=== PATIENT | male | born 1965 | race Caucasian/White ===

== ENCOUNTER 2019-10-14 17:08 | Inpatient (IN) | payer BC, OTHER, SELFPAY ==
[~2019-10-14] VITALS: Ht 167.6 cm; Wt 47.0 kg
[2019-10-14] MEDS ORDERED: COMBIVENT RESPIMAT 100-20MCG INHALER 4GM INH STA (17:23)
[2019-10-14] MEDS ORDERED: methylPREDNISolone INJ 125 MG/2 ML VIAL (J2930) IV ONE (17:30)
[2019-10-14 17:48] LABS: EOS % 0.3 % (0.0-3.0); HEMATOCRIT 46.3 % (42.0-52.0); HEMOGLOBIN 14.2 g/dl (13.5-17.5); LYMPH # 0.6 10^3/uL (1.5-5.0); LYMPH % 7.7 % (24.0-44.0); MEAN CORPUSCULAR HEMOGLOBIN 29.1 pg (27.0-33.0); MEAN CORPUSCULAR HGB CONC 30.7 g/dl (32.0-36.5); MEAN CORPUSCULAR VOLUME 94.9 fl (80.0-96.0); MONO # 1.1 10^3/uL (0.0-0.8); MONO % 15.4 % (0.0-5.0); NEUTROPHILS # 5.6 10^3/uL (1.5-8.5); NEUTROPHILS % 76.1 % (36.0-66.0); PLATELET COUNT, AUTOMATED 230 10^3/uL (150-450); RED BLOOD COUNT 4.88 10^6/uL (4.30-6.10); WHITE BLOOD COUNT 7.4 10^3/uL (4.0-10.0)
[2019-10-14 17:59] LABS: INR 1.34; PROTHROMBIN TIME 16.3 SECONDS (11.8-14.0)
[2019-10-14] MEDS ORDERED: PANT40TA3 PO (18:10)
[2019-10-14] MEDS ORDERED: DULO1CAP5 (18:10)
--- NOTE | 2019-10-14 18:14 | REP ---
Clinical: Cough and dyspnea. Comparison: 08/04/2011. Findings: COPD. No focal consolidation, effusion, or pneumothorax. Mediastinum and cardiac silhouette are normal. Skeletal structures are intact. Impression: COPD. Electronically Signed by Eh Guillen MD 10/14/2019 06:05 P
[2019-10-14 18:22] LABS: ALBUMIN 3.5 GM/DL (3.2-5.2); BILIRUBIN,DIRECT 0.2 MG/DL (0.0-0.2); BILIRUBIN,TOTAL 0.5 MG/DL (0.2-1.0); MB/CK RELATIVE INDEX 1.6 (< OR =4); THYROID STIMULATING HORMONE 1.96 uIU/ML (0.358-3.740); THYROXINE (T4) 8.7 UG/DL (4.5-12.0); TOTAL PROTEIN 6.2 GM/DL (6.4-8.2); TROPONIN I 0.37 NG/ML (< 0.10)
[2019-10-14] MEDS ORDERED: NS IV ONE (18:30)
[2019-10-14] MEDS ORDERED: ISOVUE-370 76% 100ML VIAL As Ordered ONE (20:35)
[2019-10-14 20:49] LABS: CK-MB VALUE MASS 3.2 NG/ML (<3.6); MB/CK RELATIVE INDEX 2.35 (< OR =4); TROPONIN I 0.38 NG/ML (< 0.10)
--- NOTE | 2019-10-14 21:20 | REPVR ---
PROCEDURE INFORMATION: Exam: CT Angiography Chest With Contrast Exam date and time: 10/14/2019 8:47 PM Age: 53 years old Clinical indication: Chest pain; Additional info: Hypoxia; R/O pe TECHNIQUE: Imaging protocol: Computed tomographic angiography of the chest with intravenous contrast. 3D rendering: MIP and/or 3D reconstructed images were created by the technologist. Radiation optimization: All CT scans at this facility use at least one of these dose optimization techniques: automated exposure control; mA and/or kV adjustment per patient size (includes targeted exams where dose is matched to clinical indication); or iterative reconstruction. Contrast material: ISOVUE 370; Contrast volume: 75 ml; Contrast route: INTRAVENOUS (IV); COMPARISON: CR PORTABLE CHEST X-RAY 10/14/2019 5:47 PM FINDINGS: Pulmonary arteries: No pulmonary embolism. The pulmonary artery trunk is dilated and measures 3.2 cm in diameter, which can be seen with pulmonary artery hypertension. Great vessels off aortic arch: The brachiocephalic artery, imaged proximal portions of the common carotid arteries, imaged proximal portions of the vertebral arteries, and subclavian arteries are intact. No stenosis or occlusion of these vessels is noted. Aorta: The thoracic aorta is intact and patent. There is no thoracic aortic aneurysm, pseudoaneurysm, penetrating atherosclerotic ulcer, intramural hematoma, or dissection. Tracheobronchial tree: There are secretions in the left mainstem bronchus and left lower lobe bronchus. Lungs: There are extensive centrilobular emphysematous changes, predominantly in the upper lobes. There is mild dependent atelectasis in the left lower lobe. No lung consolidation or mass is noted. Pleural space: Normal. No pneumothorax or pleural effusion. Heart: The right ventricle and right atrium are dilated. No pericardial effusion is noted. There are coronary artery calcifications. Mediastinal space: No mediastinal mass, fluid collection, or pneumomediastinum. Lymph nodes: No enlarged lymph nodes. Diaphragm: Intact. Spleen: Unremarkable. No splenomegaly is noted. Adrenals: Unremarkable. No adrenal mass is noted. Intraperitoneal space: There is a small amount of free fluid in the right upper quadrant of the abdomen. Bones/joints: There is no fracture or dislocation. No suspicious osteolytic or osteoblastic lesion. Soft tissues: Unremarkable. No soft tissue fluid collection. IMPRESSION: 1. No acute findings in the chest. No pulmonary embolism. 2. No thoracic aortic aneurysm, pseudoaneurysm, intramural hematoma, penetrating atherosclerotic ulcer, or dissection. 3. Extensive centrilobular emphysematous changes. 4. Dilation of the pulmonary artery trunk, right ventricle, and right atrium, which may indicate pulmonary artery hypertension. 5. Small amount of free fluid in the right upper quadrant of the abdomen. Electronically signed by: Elliott Key On 10/14/2019 21:20:25 PM
[2019-10-14] MEDS ORDERED: ALBUTEROL SULFATE 2.5 MG/0.5 ML INH NEB SOLN NEB ONE (22:45)
[2019-10-14] MEDS ORDERED: IPRATROPIUM 0.5MG/ALBUTEROL 2.5MG INH SOL UD 3ML (DUONEB) NEB ONE (22:45)
[2019-10-14 22:47] LABS: CK-MB VALUE MASS 2.9 NG/ML (<3.6); MB/CK RELATIVE INDEX 2.5 (< OR =4); TROPONIN I 0.38 NG/ML (< 0.10)
[2019-10-14 23:40] LABS: MAGNESIUM LEVEL 1.4 MG/DL (1.8-2.4)
[2019-10-14] MEDS ORDERED: ALBUTEROL SULFATE 2.5 MG/0.5 ML INH NEB SOLN NEB PRN (23:45)
[2019-10-14] MEDS ORDERED: ACETAMINOPHEN TAB 650MG DOSE (2X325MG) PO PRN (23:45)
[2019-10-14] MEDS ORDERED: MAG SULF 1GM/100ML (MAG RUN) 1 GM in IV 1 EA IV ONE (23:45)
[2019-10-14] MEDS ORDERED: MOM 30ML SUSPENSION UDC PO PRN (23:45)
[2019-10-14] MEDS ORDERED: MAALOX 30 ML SUSP *UDC PO PRN (23:45)
[2019-10-14] MEDS ORDERED: ASPIRIN 81 MG CHEW TABLET PO ONE (23:45)
[2019-10-14] MEDS ORDERED: METH4PACK PO (23:49)
[2019-10-14] MEDS ORDERED: PROAAER10 PO (23:49)
[2019-10-14] MEDS ORDERED: TREL1AER INH (23:49)
[2019-10-14] MEDS ORDERED: DULO60CA35 PO (23:49)
[2019-10-14] MEDS ORDERED: AMOX875T2 PO (23:49)
[2019-10-15] VITALS (11 sets, daily range): BP systolic 112–125; BP diastolic 68–80
--- NOTE | 2019-10-15 00:07 | HPEPDOC ---
[facility] Medical History & Physical Date of Admission Oct 14, 2019 Date of Service: Oct 15, 2019 Attending Physician: LILO DURHAM MD History and Physical TIME OF SERVICE: 1245PM CHIEF COMPLAINT: dyspnea HISTORY OF PRESENT ILLNESS: This is a 53 yr old male who presented with c/o of shortness of breath for several days. Yesterday he also felt dizzy and fell down therefore he decided to come to the hospital for evaluation. He denied having chest pain, PINZON, f/c, sick contacts, any leg swelling, or a change in his productive cough. He did admit to being around someone that was smoking. In the ER his ABG, which showed a pH of 7.30, PO2 of 68 and PCO2 of 98 & he was put on BIPAP; the second ABG showed a pH 7.24, PO2 of 84 and PCO2 of 106.9. Despite receiving solumedrol and nebs, subsequent ABGs showed minimal improvement. Chest imaging studies were negative for PE or PNA but his troponin was slightly elevated at 0.37. Per Rajeev Gonsalez was consulted and felt that this was likely demand ischemia. REVIEW OF SYSTEMS: 12 point review of systems negative except as listed in HPI PAST MEDICAL/ SURGICAL HISTORY: COPD He denies having a hx of CAD, ND, CVA, HTN or DM SOCIAL HISTORY: Former smoker Drinks a few alcoholic beverages a week FAMILY HISTORY: He denies having any family medical problems ALLERGIES: Please see below. HOME MEDICATIONS: Please see below. PHYSICAL EXAMINATION: Vital Signs Date Time Temp Pulse Resp B/P (MAP) Pulse Ox O2 Delivery O2 Flow Rate FiO2 10/14/19 17:26 129/91 (104) 10/14/19 17:38 96 99 10/14/19 17:50 Nasal Cannula 3.0 10/14/19 19:45 22 10/14/19 20:30 30 10/14/19 21:01 98.3 GENERAL APPEARANCE: cachectic / NAD HEENT: NCAT/ BIPAP mask in place CARDIOVASCULAR: RRR/NMRG / no lower extremity edema. LUNGS: there is decreased air entry bilaterally / breath sounds are diminished bilaterally ABDOMEN: scaphoid/ soft &NT MUSCULOSKELETAL: DIANE x 4 INTEGUMENT: doesnt have facial plethora NEUROLOGICAL: difficult to assess bc of BIPAP mask PSYCHIATRIC: A&O / able to understand and follow commands LABORATORY DATA: 10/14/19 17:34 Immature Granulocyte % (Auto) 0.5, Neutrophils (%) (Auto) 76.1H, Lymphocytes (%) (Auto) 7.7L, Monocytes (%) (Auto) 15.4H, Eosinophils (%) (Auto) 0.3, Basophils (%) (Auto) 0.0, Neutrophils # (Auto) 5.6, Lymphocytes # (Auto) 0.6L, Monocytes # (Auto) 1.1H, Eosinophils # (Auto) 0.0, Basophils # (Auto) 0.0, Nucleated Red Blood Cells % (auto) 0.0, Prothrombin Time 16.3H, Prothromb Time International Ratio 1.34, Lactic Acid Level 3.0*H, Total Bilirubin 0.5, Direct Bilirubin 0.2, Aspartate Amino Transf (AST/SGOT) 445H, Alanine Aminotransferase (ALT/SGPT) 1197H, Alkaline Phosphatase 94, Total Creatine Kinase 187, Creatine Kinase MB 3.0, Creatine Kinase MB Relative Index 1.60, Troponin I 0.37H, AT-Dgu-X-Type Natriuretic Peptide 1927H, Total Protein 6.2L, Albumin 3.5, Albumin/Globulin Ratio 1.3, Thyroid Stimulating Hormone (TSH) 1.960, Thyroxine (T4) 8.7 10/14/19 17:49: POC Glucose (Misc Panel) 161H, POC Sodium (Misc Panel) 131L, POC Potassium (Misc Panel) 3.8, POC Chloride (Misc Panel) 78L, POC Total CO2 (Misc Panel) 41.0H, POC Blood Urea Nitrogen (Misc Panel 18, POC Ionized Calcium (Misc Panel) 4.4L, POC Creatinine (Misc Panel) 0.5L, POC Hematocrit (Misc Panel) 49.0 10/14/19 17:50: POC Total CO2 (Misc Panel) > 50.0H, POC pH (Misc Panel) 7.284L, POC Base Excess (Misc Panel) 22.0H, POC Saturated Percent O2 (Misc) 89L, POC pO2 (Misc Panel) 69.0L, POC pCO2 (Misc Panel) 102.1*H, POC HCO3 (Misc Panel) 48.4H 10/14/19 18:50: POC Total CO2 (Misc Panel) > 50.0H, POC pH (Misc Panel) 7.304L, POC Base Excess (Misc Panel) 22.0H, POC Saturated Percent O2 (Misc) 89L, POC pO2 (Misc Panel) 68.0L, POC pCO2 (Misc Panel) 98.1*H, POC HCO3 (Misc Panel) 48.7H 10/14/19 19:36: POC Troponin I (Misc) 0.19H 10/14/19 19:52: Total Creatine Kinase 136, Creatine Kinase MB 3.2, Creatine Kinase MB Relative Index 2.35, Troponin I 0.38H 10/14/19 20:13: POC pH (Misc Panel) 7.243*L, POC Base Excess (Misc Panel) 19.0H, POC Saturated Percent O2 (Misc) 84L, POC pO2 (Misc Panel) 63.0L, POC pCO2 (Misc Panel) 106.9*H, POC HCO3 (Misc Panel) 46.1H, POC Total CO2 (Misc Panel) 49.0H 10/14/19 22:06: Total Creatine Kinase 116, Creatine Kinase MB 2.9, Creatine Kinase MB Relative Index 2.50, Troponin I 0.38H, Lactic Acid Followup at 4 Hours 0.7, Magnesium Level 1.4L 10/14/19 22:12: POC pH (Misc Panel) 7.234*L, POC Base Excess (Misc Panel) 18.0H, POC Saturated Percent O2 (Misc) 88L, POC pO2 (Misc Panel) 70.0L, POC pCO2 (Misc Panel) 106.8*H, POC HCO3 (Misc Panel) 45.1H, POC Total CO2 (Misc Panel) 48.0H 10/14/19 23:30: POC pH (Misc Panel) 7.275L, POC Base Excess (Misc Panel) 19.0H, POC Saturated Percent O2 (Misc) 85L, POC pO2 (Misc Panel) 62.0L, POC pCO2 (Misc Panel) 99.0*H, POC HCO3 (Misc Panel) 46.0H, POC Total CO2 (Misc Panel) 49.0H IMAGING: Chest x-ray Findings: COPD. No focal consolidation, effusion, or pneumothorax. Mediastinum and cardiac silhouette are normal. Skeletal structures are intact. Impression: COPD. CTA chest IMPRESSION: 1. No acute findings in the chest. No pulmonary embolism. 2. No thoracic aortic aneurysm, pseudoaneurysm, intramural hematoma, penetrating atherosclerotic ulcer, or dissection. 3. Extensive centrilobular emphysematous changes. 4. Dilation of the pulmonary artery trunk, right ventricle, and right atrium, which may indicate pulmonary artery hypertension. 5. Small amount of free fluid in the right upper quadrant of the abdomen. MICROBIOLOGY: 10/14/19 Blood Culture, Received Pending 10/14/19 Respiratory Virus Panel (PCR) (KIM) - Final, Complete 10/14/19 Blood Culture, Received Pending ASSESSMENT: is a 53 yr old w a hx of COPD who is admitted for management of Acute COPD with Acute BIPAP Dependent Hypercapneic/ Hypoxemic Respiratory Failure. PLAN: 1. Acute Hypercapneic/ Hypoxemic Respiratory Failure 2/2 Acute COPD Trigger may be: smoke exposure or less likely myocardial ischemia ABG showed findings c/w primary acute respiratory acidosis BAP-65 Score to predict mortality in acute COPD = Class 1 = 0.3% in hospital mortality Plan: admit to ICU for BIPAP/ cosult Pulm () / continuous pulse oximetry / aspiration precautions / COPD diet / f/u repeat ABGs / Dunebs Q6H, Albuterol Q1HP, Prednisone + PPI / will give not Levofloxacin because the patient denies having a change in his chronic productive cough / he will need a refer to Deputy General Counsel for repeat PFTs and Pulmonary Rehab within 90 days of discharge which has been shown to reduce mortality 2. Type 2 NSTEMI/Demand Ischemia He didnt have CP EKG showed a HR of 88 w/o acute ST changes Troponin ranged from 0.37 to 0.38 Plan: telemetry / ASA / continue to trend trops / f/u lipid panel and Echo 3. Pulm HTN Likely Group 3 pulm HTN Likely contributing to elevated BNP Plan: f/u Echo to determine PSAP 4. Hepatocellular Transaminitis Cause TBD Since the ALT is much higher than the AST this is less likely 2/2 alcoholic liver dz His PT is also elevated Plan: f/u Hep panel and Liver US 5. Lactic Acidosis Likely 2/2 hypoxia Plan: trend lactic acid 6. Hypomagnesemia Likely 2/2 PPI which causes mag loss via reduced mag absorption He received Mag Sulfate in the ER Plan: f/u repeat Mag in the AM 7. Mild Hyponatremia Plan: f/u Uosmol, serum osmol, Jace to determine cause 8. 1st Degree AV Block EKG showed NH of 111 9. Pulmonary Cachexia ? 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 consult DVT Px w Lovenox Dispo: likely home after more than 2 midnights stay Home Medications Scheduled Amoxicillin/Potassium Clav (Amox-Clav 875-125 mg Tablet) 1 Each Tablet, 875 MG PO BID STARTED 10/10/19 FOR 10 DAYS Duloxetine HCl (Duloxetine HCl) 60 Mg Capsule.dr, 60 MG PO DAILY Fluticasone/Umeclidin/Vilanter (Trelegy Ellipta 100-62.5-25) 1 Each Blst.w.dev, 1 PUFF INH DAILY Methylprednisolone (Methylprednisolone) 4 Mg Tab.ds.pk, 4 MG PO TAPER STARTED 10/10/19 FOR 6 DAYS Pantoprazole Sodium (Pantoprazole Sodium) 40 Mg Tablet.dr, 40 MG PO DAILY Scheduled PRN Albuterol Sulfate (Proair Hfa) 8.5 Gm Hfa.aer.ad, 2 PUFFS PO QID PRN for SHORTNESS OF BREATH Allergies Coded Allergies: No Known Allergies (Unverified , 10/14/19) A-FIB/CHADSVASC A-FIB History Current/History of A-Fib/PAF?: No Current PO Anticoag Therapy: No LILO DURHAM MD Oct 15, 2019 00:07
--- NOTE | 2019-10-15 01:01 | REPVR ---
PROCEDURE INFORMATION: Exam: US Abdomen, Limited; Right Upper Quadrant Exam date and time: 10/15/2019 12:36 AM Age: 53 years old Clinical indication: Abnormal findings; Abnormal lab test; Elevated liver enzymes; Additional info: Transaminitis TECHNIQUE: Imaging protocol: US abdomen. Real time ultrasound with image documentation. Limited exam focused on the right upper quadrant. COMPARISON: CT ANGIO CHEST 10/14/2019 8:43:09 PM FINDINGS: Liver: The echogenicity of the liver is within normal limits. No liver lesion is identified from the images obtained. The contour of the liver is smooth. Gallbladder: The gallbladder is normal in appearance. No stones, masses, gallbladder wall thickening, or pericholecystic fluid are noted. No sonographic Mckeon's sign was reported by the magnetic resonance technologist. The gallbladder is normal in appearance. No stones, masses, gallbladder wall thickening, or pericholecystic fluid are noted. No sonographic Mckeon's sign was reported by the magnetic resonance technologist. Common bile duct: The common bile duct is normal in caliber measures 5 mm in diameter at the level of the julia hepatis. Pancreas: The pancreas is unremarkable. Right kidney: The right kidney is normal in appearance and measures 14 cm in length. There is no renal cortical thinning. The renal cortical echogenicity is within normal limits. No renal lesion is seen. There is no hydronephrosis. No obvious stones are seen in the renal collecting system. Intraperitoneal space: There is a trace amount of free fluid in the right upper quadrant of the abdomen around the liver. IMPRESSION: Trace amount of free fluid in the right upper quadrant of the abdomen around the liver. Electronically signed by: Elliott Key On 10/15/2019 01:01:24 AM
[2019-10-15] MEDS: IPRATROPIUM 0.5MG/ALBUTEROL 2.5MG INH SOL UD 3ML (DUONEB) NEB SCH ×6 (01:54→23:55)
[2019-10-15 04:05] LABS: HEMATOCRIT 44.2 % (42.0-52.0); HEMOGLOBIN 13.6 g/dl (13.5-17.5); MEAN CORPUSCULAR HEMOGLOBIN 28.8 pg (27.0-33.0); MEAN CORPUSCULAR HGB CONC 30.8 g/dl (32.0-36.5); MEAN CORPUSCULAR VOLUME 93.4 fl (80.0-96.0); PLATELET COUNT, AUTOMATED 214 10^3/uL (150-450); RED BLOOD COUNT 4.73 10^6/uL (4.30-6.10); WHITE BLOOD COUNT 4.7 10^3/uL (4.0-10.0)
[2019-10-15 04:27] LABS: ALBUMIN 3.2 GM/DL (3.2-5.2); ALT/SGPT 961 U/L (12-78); BILIRUBIN,TOTAL 0.5 MG/DL (0.2-1.0); BLOOD UREA NITROGEN 10 MG/DL (7-18); CALCIUM LEVEL 8.4 MG/DL (8.5-10.1); CARBON DIOXIDE LEVEL 43 MEQ/L (21-32); CHLORIDE LEVEL 89 MEQ/L (98-107); CHOLESTEROL LEVEL 121 MG/DL (<200); CHOLESTEROL RISK RATIO 4.321 (<5); CREATININE FOR GFR 0.25 MG/DL (0.70-1.30); GLOMERULAR FILTRATION RATE > 60.0 (>56); GLUCOSE, FASTING 142 MG/DL (70-100); HDL CHOLESTEROL 28 MG/DL (>40); LDL CHOLESTEROL 81 MG/DL (<100); MAGNESIUM LEVEL 1.7 MG/DL (1.8-2.4); NON-HDL-C 93 MG/DL; POTASSIUM SERUM 4.2 MEQ/L (3.5-5.1); SODIUM LEVEL 133 MEQ/L (136-145); TOTAL PROTEIN 5.9 GM/DL (6.4-8.2); TRIGLYCERIDES LEVEL 61 MG/DL (<150); TROPONIN I 0.28 NG/ML (< 0.10)
[2019-10-15 05:44] LABS: ABG BASE EXCESS 18.6 (-2.0-2.0); ABG HCO3 48.4 MEQ/L (22.0-26.0); ABG O2 SATURATION 97.2 % (95.0-99.0); ABG PARTIAL PRESSURE O2 89.9 mmHg (75.0-100.0); ABG STANDARD HCO3 42.9 MEQ/L (22.0-26.0); ABG TOTAL CO2 50.9 MEQ/L (22.0-29.0); ABG pH (ARTERIAL) 7.393 UNITS (7.350-7.450)
[2019-10-15 05:45] LABS: ABG PARTIAL PRESSURE CO2 81.2 mmHg (35.0-45.0)
--- NOTE | 2019-10-15 08:24 | ECGEPIP ---
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
--- NOTE | 2019-10-15 08:26 | ECGEPIP ---
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
--- NOTE | 2019-10-15 08:28 | ECGEPIP ---
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
--- NOTE | 2019-10-15 08:43 | IPNPDOC ---
Text Note Date of Service The patient was seen on 10/15/19. NOTE SUBJECTIVE: Feels better this morning. SOB is improving. No fever or chills, no chest pain. No cough or phlegm. PHYSICAL EXAM: VITALS: As below. GENERAL APPEARANCE: cachectic / NAD HEENT: NCAT/ BIPAP mask in place , Bitemporal wasting, CARDIOVASCULAR: RRR/NMRG / no lower extremity edema. LUNGS: there is decreased air entry bilaterally / breath sounds are diminished bilaterally ABDOMEN: scaphoid/ soft &NT MUSCULOSKELETAL: DIANE x 4 INTEGUMENT: doesnt have facial plethora NEUROLOGICAL: difficult to assess bc of BIPAP mask PSYCHIATRIC: A&O / able to understand and follow commands LABS: Reviewed. IMAGING: Chest x-ray Findings: COPD. No focal consolidation, effusion, or pneumothorax. Mediastinum and cardiac silhouette are normal. Skeletal structures are intact. Impression: COPD. CTA chest IMPRESSION: 1. No acute findings in the chest. No pulmonary embolism. 2. No thoracic aortic aneurysm, pseudoaneurysm, intramural hematoma, penetrating atherosclerotic ulcer, or dissection. 3. Extensive centrilobular emphysematous changes. 4. Dilation of the pulmonary artery trunk, right ventricle, and right atrium, which may indicate pulmonary artery hypertension. 5. Small amount of free fluid in the right upper quadrant of the abdomen. MICROBIOLOGY: 10/14/19 Blood Culture, Received Pending 10/14/19 Respiratory Virus Panel (PCR) (KIM) - Final, Complete 10/14/19 Blood Culture, Received Pending ASSESSMENT AND PLAN: is a 53 yr old w a hx of COPD who is admitted for management of Acute COPD with Acute on chronic Hypercapneic/ Hypoxemic Respiratory Failure requiring BIPAP. Acute on chronic Hypercapneic/ Hypoxemic Respiratory Failure 2/2 Acute COPD Trigger may be: smoke exposure or less likely myocardial ischemia ABG this morning seems to be close to baseline. Duonebs, advair, albuterol, prednisone Continue BIPAP as per pulmonary Type 2 NSTEMI/Demand Ischemia He didnt have CP EKG showed a HR of 88 w/o acute ST changes Troponin ranged from 0.37 to 0.38 ASA/ lipid panel and Echo Pulm HTN f/u Echo to determine PSAP Hepatocellular Transaminitis Most probably hepatic congestion from chronic right heart failure from pulmonary hypertension Since the ALT is much higher than the AST this is less likely 2/2 alcoholic liver dz Hep panel and Liver US Lactic Acidosis Likely 2/2 hypoxia Hypomagnesemia Likely 2/2 PPI which causes mag loss via reduced mag absorption replaced Mild Hyponatremia probably due to chronic lung disease 1st Degree AV Block EKG showed NH of 111 Pulmonary Cachexia His BMI is 15.7 but his albumin is 3.5 VS,Fishbone, I+O VS, Fishbone, I+O Laboratory Tests 10/14/19 17:34 10/15/19 03:49 Vital Signs Date Time Temp Pulse Resp B/P (MAP) Pulse Ox O2 Delivery O2 Flow Rate FiO2 10/15/19 06:00 76 117/77 (90) 96 NIPPV (BIPAP/CPAP) 35 10/15/19 04:00 98.6 10/15/19 01:24 18 10/14/19 17:50 3.0 I&O- Last 24 Hours up to 6 AM 10/15/19 06:00 Intake Total 1430 ml Output Total 250 ml Balance 1180 ml EFE VELA MD Oct 15, 2019 07:32
[2019-10-15] MEDS: DULoxetine 30 MG CAP (CYMBALTA) PO SCH (09:08)
[2019-10-15] MEDS: PANTOPRAZOLE 40MG TAB (PROTONIX) PO SCH (09:08)
[2019-10-15] MEDS: ENOXAPARIN 40MG/0.4ML SYRINGE (J1650 PER 10MG) SC SCH (09:08)
[2019-10-15] MEDS: predniSONE 20 MG TAB PO SCH (09:08)
[2019-10-15 09:16] LABS: HEPATITIS A ANTIBODY IGM NEGATIVE (NEGATIVE); HEPATITIS B CORE ANTIBODY IGM NEGATIVE (NEGATIVE); HEPATITIS B SURFACE ANTIGEN NEGATIVE (NEGATIVE); HEPATITIS C VIRUS ABY INDEX 0.2 INDEX (<0.8)
[2019-10-15 09:53] LABS: OSMOLALITY URINE 845 MOSM/KG (500-800)
[2019-10-15 10:16] LABS: SODIUM,RANDOM URINE 24 MEQ/L
[2019-10-15] MEDS: NYSTATIN 500,000 U/5 ML SUSP UDC PO SCH ×4 (10:34→20:58)
[2019-10-15] MEDS ORDERED: MAG SULF 1GM/100ML (MAG RUN) 1 GM in IV 1 EA IV ONE (11:00)
[2019-10-15] MEDS: ADVAIR HFA 230/21MCG INHALER INH SCH ×2 (11:27→20:46)
--- NOTE | 2019-10-15 12:37 | CCN ---
DATE: 10/15/2019 Mr. Deras is seen in the intensive care unit (ICU). He has been on BiPAP. He does report that overall he is feeling some improvement. He had initially come in yesterday after about a week-long history of worsening shortness of breath and eventual dizziness and what sounds like syncope. The patient denies any recent fevers or chills. He has had no fevers or chills since his admission. He reports the BiPAP has been helping. The patient is an outpatient of Dr. Zuniga who is followed for emphysema. He is on continuous supplemental oxygen at home. Dr. Zuniga has discussed the possibility of lung transplant with the patient, in the past. The patient has a history of a normal alpha-1 antitrypsin level. He is a former smoker who quit in January 2019. He has been gradually losing weight and states he recently started using protein shakes at home. PHYSICAL EXAMINATION: Vitals: Temperature 98.6, pulse 76, respiratory rate 18, blood pressure 117/77, oxygen saturation 96% on BiPAP. BiPAP settings are 18 over 5 with a rate of 12 and FIO2 30%. General: The patient is alert and oriented. He speaks in complete sentences. He appears chronically ill. He is cachectic appearing. HEENT: Head is normocephalic, atraumatic. The patient has evidence of thrush on his tongue. Tongue is midline. Neck is supple. No cervical lymphadenopathy. No jugular venous distention (JVD). Trachea is midline. Pulmonary: Breath sounds are clear, but diminished in all espinoza with no wheezes, rales or rhonchi. No obvious accessory muscle use. Heart: Regular rate and rhythm. S1, S2. No obvious murmurs. Abdomen: Positive bowel sounds, soft, nontender. No rebound or guarding. Extremities: No clubbing, cyanosis or edema. Skin: Skin is warm and dry. Neurologic: Nonfocal grossly. LABORATORY DATA: ABG: pH 7.39, pCO2 81.2, pO2 89.9. WBC 4.7, hemoglobin 13.6, hematocrit 44.2, platelets 214. Sodium 133, potassium 4.2, chloride 89, carbon dioxide 43, BUN, creatinine 5, glucose 142, osmolality 283, lactic acid 1.0, calcium 8.4, magnesium 1.7, total bilirubin 0.5, AST 324, ALT 961, alkaline phosphatase 65, troponin 0.28, total protein 5.9, albumin 3.2, triglycerides 61, total cholesterol 121, LDL 81, HDL 28. Blood cultures x2 pending. Respiratory virus panel was negative. Chest CT shows significant emphysema, most notably in bilateral apices. There was no pulmonary embolism (PE). The patient does have a nonspecific rounded lesion of the left wall the proximal esophagus, that was not called by the radiologist. ASSESSMENT/PLAN: 1. Hypercarbic respiratory failure. The patient has hypercarbic respiratory failure secondary to exacerbation of chronic obstructive pulmonary disease (COPD)/emphysema. He is on prednisone. He has been bringing up more mucus; therefore, we will get a sputum culture. He likely will continue to have episodes of acute on chronic respiratory failure given his significant emphysema. Dr. Zuniga discussed the possibility of a lung transplant with him and the patient states he would be interested in considering that possibility. The patient does need to gain some weight as he has been losing weight and does appear cachectic. We will add Ensure and also order a nutrition consult for a high-protein diet. The patient does report that he has never been diagnosed with cancer and he did quit smoking over 6 months ago in January 2019 and has no intention on restarting. An alpha-1 antitrypsin was checked in 2010 according to pulmonary office records and it does state that the alpha-1 was normal. Plan for the patient's respiratory failure will be to continue BiPAP, but for sleep and for naps. While he is awake, he can continue with oxygen titration to keep above 90. The patient will likely need BiPAP as an outpatient for his hypercapnic respiratory failure. 2. Emphysema. Oxygen dependent. See above. 3. Thush. The patient will be placed on nystatin swish and swallow four times a day for oral thrush. 4. Nonspecific rounded lesion on the left wall of the proximal esophagus on chest CT. This will need further evaluation once the patient is clinically improving. I did discuss this with Dr. Raya, the patient's attending hospitalist, and we reviewed the imaging together. We will defer the workup of this to Dr. Raya and the medicine team. Total critical care time, excluding all procedures was 50 minutes. [facility]
[2019-10-16] VITALS (8 sets, daily range): BP systolic 104–133; BP diastolic 56–80; O2SAT 98
[2019-10-16] MEDS: IPRATROPIUM 0.5MG/ALBUTEROL 2.5MG INH SOL UD 3ML (DUONEB) NEB SCH ×5 (04:27→20:00)
[2019-10-16 04:31] LABS: HEMATOCRIT 42.2 % (42.0-52.0); LYMPH # 0.4 10^3/uL (1.5-5.0); LYMPH % 5.4 % (24.0-44.0); MEAN CORPUSCULAR HEMOGLOBIN 29.1 pg (27.0-33.0); MEAN CORPUSCULAR HGB CONC 30.8 g/dl (32.0-36.5); MEAN CORPUSCULAR VOLUME 94.6 fl (80.0-96.0); NEUTROPHILS # 6.3 10^3/uL (1.5-8.5); NEUTROPHILS % 81.3 % (36.0-66.0); PLATELET COUNT, AUTOMATED 202 10^3/uL (150-450); RED BLOOD COUNT 4.46 10^6/uL (4.30-6.10); WHITE BLOOD COUNT 7.8 10^3/uL (4.0-10.0)
[2019-10-16 04:57] LABS: BLOOD UREA NITROGEN 16 MG/DL (7-18); CALCIUM LEVEL 8.6 MG/DL (8.5-10.1); CARBON DIOXIDE LEVEL 44 MEQ/L (21-32); CHLORIDE LEVEL 92 MEQ/L (98-107); GLOMERULAR FILTRATION RATE > 60.0 (>56); GLUCOSE, FASTING 108 MG/DL (70-100); POTASSIUM SERUM 4.4 MEQ/L (3.5-5.1); SODIUM LEVEL 135 MEQ/L (136-145)
[2019-10-16] MEDS: ADVAIR HFA 230/21MCG INHALER INH SCH ×2 (07:42→20:37)
[2019-10-16 07:58] LABS: ALT/SGPT 820 U/L (12-78); BILIRUBIN,DIRECT 0.1 MG/DL (0.0-0.2); BILIRUBIN,TOTAL 0.4 MG/DL (0.2-1.0); TOTAL PROTEIN 5.3 GM/DL (6.4-8.2)
[2019-10-16] MEDS: TIOTROPIUM INHALER/CAPSULE (SPIRIVA) INH SCH (08:00)
[2019-10-16] MEDS: NYSTATIN 500,000 U/5 ML SUSP UDC PO SCH ×4 (08:30→21:58)
[2019-10-16] MEDS: predniSONE 20 MG TAB PO SCH (08:31)
[2019-10-16] MEDS: DULoxetine 30 MG CAP (CYMBALTA) PO SCH (08:31)
[2019-10-16] MEDS: PANTOPRAZOLE 40MG TAB (PROTONIX) PO SCH (08:31)
[2019-10-16] MEDS: ENOXAPARIN 40MG/0.4ML SYRINGE (J1650 PER 10MG) SC SCH (08:31)
--- NOTE | 2019-10-16 11:31 | CCN ---
DATE OF SERVICE: 10/16/2019 Mr. Mckeon is seen in the intensive care unit (ICU). He has been on bilevel positive airway pressure (BiPAP) at night and is currently on oxygen by nasal cannula. His saturations have been appropriate on both of BiPAP and now on the nasal cannula at 2 liters. He denies any fevers or chills and states that he is gradually improving. He states his breathing has slowly returned to baseline. He did have a nutrition consult yesterday and is working on increasing his fluid intake and protein. PHYSICAL EXAMINATION: Vital Signs: Temperature is 98.5, pulse 93, blood pressure 122/80, respiratory rate 15. Current pulse oximetry is 92% on 2 liters. At nighttime, the patient has been on BiPAP at 18/5. General: The patient is alert and oriented times three. Mood and mood affect are appropriate. He speaks in complete sentences. HEENT: Head is normocephalic, atraumatic. Moist mucous membranes. Oral thrush has resolved. Neck: Neck is supple. No cervical lymphadenopathy. No jugular venous distention (JVD). Trachea is midline. Pulmonary: Diminished breath sounds in all espinoza but clear to auscultation bilaterally with no wheezes, rales, rhonchi, or crackles. Prolonged expiratory phase. No accessory muscle use. Heart: Regular rate and rhythm. S1, S2. No murmurs. Abdomen: Positive bowel sounds, soft, nontender. No rebound or guarding. Extremities: No clubbing, cyanosis, or edema. Skin: Skin is warm and dry. LABORATORY DATA: WBC 7.8, hemoglobin 13.0, hematocrit 42.2, platelet 202. Sodium 135, potassium 4.40, chloride 92, carbon dioxide 44, BUN 16, creatinine 0.30, glucose 108, calcium 8.6. Total bilirubin 0.4, direct bilirubin 0.1. AST 259, ALT 820. Alkaline phosphatase 73. Total protein 5.3. Albumin 3.0. Sputum culture is pending. Blood cultures are negative after 24 hours times two. Respiratory virus panel was negative. ASSESSMENT/PLAN: 1. Hypercarbic respiratory failure. The patient has hypercarbic respiratory failure secondary to exacerbation of chronic obstructive pulmonary disease (COPD)/emphysema. He has de-escalated from continues BiPAP to just BiPAP at night while sleeping and for daytime naps, and is now on supplemental oxygen during the day when awake. The patient will likely need BiPAP when he goes home. We will transposition him to tabletop BiPAP and change the settings to 16/5. As noted, he will likely need a home BiPAP and will likely need outpatient sleep testing, and therefore, once he is ready to go he will need to be set up for an [facility] pulmonary outpatient office appointment in order to initiate the sleep workup to get him home BiPAP. The patient is currently on prednisone 40 mg daily. He will need a prednisone taper with prednisone 40 mg for 5 days, then 30 mg for 5 days, then 20 mg for 5 days, then 10 mg for 5 days. He is continuing with DuoNebs. He is getting Advair. He is on anticholinergic therapy at home as well, and therefore, we will start him up on Spiriva while he is here. He will likely be here for another day or two before he will be ready to be discharged home. Dr. Zuniga did talk with him about advance directives and the patient did fill out a Medical Orders for Life Sustaining Treatment (MOLST) form. 2. Thrush. The patient was started on nystatin yesterday for oral thrush and he does note overall improvement and no significant evidence of thrush on exam. OFELIAD
--- NOTE | 2019-10-16 14:35 | IPNPDOC ---
Text Note Date of Service The patient was seen on 10/16/19. NOTE SUBJECTIVE: Feels better this morning. SOB is improving. No fever or chills, no chest pain. No cough or phlegm. laying comfortable in bed. using BIPAP during naps and sleep PHYSICAL EXAM: VITALS: As below. GENERAL APPEARANCE: cachectic / NAD HEENT: NCAT/ BIPAP mask in place , Bitemporal wasting, CARDIOVASCULAR: RRR/NMRG / no lower extremity edema. LUNGS: there is decreased air entry bilaterally / breath sounds are diminished bilaterally ABDOMEN: scaphoid/ soft &NT MUSCULOSKELETAL: DIANE x 4 INTEGUMENT: doesnt have facial plethora NEUROLOGICAL: No focal neurodeficits. PSYCHIATRIC: A&O x 3 LABS: Reviewed. IMAGING: Chest x-ray Findings: COPD. No focal consolidation, effusion, or pneumothorax. Mediastinum and cardiac silhouette are normal. Skeletal structures are intact. Impression: COPD. CTA chest IMPRESSION: 1. No acute findings in the chest. No pulmonary embolism. 2. No thoracic aortic aneurysm, pseudoaneurysm, intramural hematoma, penetrating atherosclerotic ulcer, or dissection. 3. Extensive centrilobular emphysematous changes. 4. Dilation of the pulmonary artery trunk, right ventricle, and right atrium, which may indicate pulmonary artery hypertension. 5. Small amount of free fluid in the right upper quadrant of the abdomen. MICROBIOLOGY: 10/14/19 Blood Culture, Received Pending 10/14/19 Respiratory Virus Panel (PCR) ([facility]) - Final, Complete 10/14/19 Blood Culture, Received Pending ASSESSMENT AND PLAN: is a 53 yr old w a hx of COPD who is admitted for management of Acute COPD with Acute on chronic Hypercapneic/ Hypoxemic Respiratory Failure requiring BIPAP. Acute on chronic Hypercapneic/ Hypoxemic Respiratory Failure 2/2 Acute COPD Trigger may be: smoke exposure or less likely myocardial ischemia Duonebs, advair, albuterol, prednisone, spiriva Table top 16/5 setting. will need long prednosone taper with 5 days of each dosage. Referral to [facility] on discharge for sleep study. Type 2 NSTEMI/Demand Ischemia He didnt have CP EKG showed a HR of 88 w/o acute ST changes Troponin ranged from 0.37 to 0.38 ASA/ lipid panel and Echo Pulm HTN f/u Echo to determine PSAP Hepatocellular Transaminitis Most probably hepatic congestion from chronic right heart failure from pulmonary hypertension Since the ALT is much higher than the AST this is less likely 2/2 alcoholic lisa er dz Hep panel and Liver US Lactic Acidosis Likely 2/2 hypoxia Hypomagnesemia Likely 2/2 PPI which causes mag loss via reduced mag absorption replaced Mild Hyponatremia probably due to chronic lung disease 1st Degree AV Block EKG showed IN of 111 Pulmonary Cachexia His BMI is 15.7 but his albumin is 3.5 VS,Fishbone, I+O VS, Fishbone, I+O Laboratory Tests 10/16/19 04:18 Vital Signs Date Time Temp Pulse Resp B/P (MAP) Pulse Ox O2 Delivery O2 Flow Rate FiO2 10/16/19 08:00 3.0 10/16/19 08:00 98.5 79 12 122/80 (94) 99 Nasal Cannula 10/16/19 04:33 30 I&O- Last 24 Hours up to 6 AM 10/16/19 06:00 Intake Total 1520 ml Output Total 450 ml Balance 1070 ml EFE VELA MD Oct 16, 2019 14:35
--- NOTE | 2019-10-16 23:52 | ECHO ---
DATE OF PROCEDURE: 10/16/2019 REFERRING PHYSICIAN: Dr. Lindsey Tripp INDICATION: Dyspnea. Height 168 cm, weight 46 kg. DIMENSIONS: IVS: 0.8 LV: 4.3 LVPW: 1.0 LA: 3.4 Aorta: 3.3 IVC: 1.1 Mitral E wave velocity: 89 A wave: 78 E prime septal: 8.6 E prime lateral: 11.4 FINDINGS: The study is of good technical quality. The patient is in sinus rhythm. Normal left ventricular (LV) size with normal LV systolic function, estimated left ventricular ejection fraction (LVEF) approximately 60%. Right ventricle appears very dilated and globally hypokinetic. Right atrium is severely enlarged. Left atrium is normal size. Aortic valve is mildly sclerotic, but it has three cusps and preserved mobility. Mitral, tricuspid and pulmonic valves appear normal. No pericardial effusion is noted. Inferior vena cava is normal size. Aortic root is normal. Aortic arch and abdominal aorta were not well visualized. Doppler interrogation of aortic valve reveals no stenosis or insufficiency. There is trace mitral and trace tricuspid insufficiency. Calculated pulmonary artery pressure is in low 30s, but it is based on very poor quality TR jet and very likely severely underestimates pulmonary artery pressure. Mitral inflow pattern and tissue Doppler imaging of mitral annulus revealed normal diastolic function left ventricle. CONCLUSIONS: 1. Study is of acceptable technical quality. The patient is in sinus rhythm. 2. Normal LV size, systolic and diastolic function. 3. Dilated hypokinetic right ventricle. 4. No hemodynamically significant valvular disease. 5. Likely normal central venous pressure. 6. Calculated pulmonary artery pressure was only in 30s, but based on morphology of the right ventricle, I do expect that the patient has significant pulmonary hypertension COMMENT: Subacute bacterial endocarditis (SBE) prophylaxis is not recommended.
[2019-10-17] MEDS: IPRATROPIUM 0.5MG/ALBUTEROL 2.5MG INH SOL UD 3ML (DUONEB) NEB SCH ×6 (00:26→23:48)
[2019-10-17 04:35] VITALS: BP 108/63
[2019-10-17 07:04] LABS: EOS % 0.3 % (0.0-3.0); HEMATOCRIT 42.5 % (42.0-52.0); HEMOGLOBIN 13.2 g/dl (13.5-17.5); LYMPH # 0.7 10^3/uL (1.5-5.0); LYMPH % 11.3 % (24.0-44.0); MEAN CORPUSCULAR HGB CONC 31.1 g/dl (32.0-36.5); MEAN CORPUSCULAR VOLUME 93.4 fl (80.0-96.0); MONO # 0.7 10^3/uL (0.0-0.8); MONO % 11.5 % (0.0-5.0); NEUTROPHILS # 4.7 10^3/uL (1.5-8.5); NEUTROPHILS % 76.4 % (36.0-66.0); PLATELET COUNT, AUTOMATED 198 10^3/uL (150-450); RED BLOOD COUNT 4.55 10^6/uL (4.30-6.10); WHITE BLOOD COUNT 6.1 10^3/uL (4.0-10.0)
[2019-10-17] MEDS: TIOTROPIUM INHALER/CAPSULE (SPIRIVA) INH SCH (07:10)
[2019-10-17] MEDS: ADVAIR HFA 230/21MCG INHALER INH SCH ×2 (07:10→18:14)
[2019-10-17] MEDS: NYSTATIN 500,000 U/5 ML SUSP UDC PO SCH ×4 (08:48→21:47)
[2019-10-17] MEDS: predniSONE 20 MG TAB PO SCH (08:48)
[2019-10-17] MEDS: ENOXAPARIN 40MG/0.4ML SYRINGE (J1650 PER 10MG) SC SCH (08:48)
[2019-10-17] MEDS: DULoxetine 30 MG CAP (CYMBALTA) PO SCH (08:48)
[2019-10-17] MEDS: PANTOPRAZOLE 40MG TAB (PROTONIX) PO SCH (08:48)
--- NOTE | 2019-10-17 10:17 | IPNPDOC ---
Text Note Date of Service The patient was seen on 10/17/19. NOTE SUBJECTIVE: Feels better this morning. SOB is improving. No fever or chills, no chest pain. No cough or phlegm. laying comfortable in bed. Did not use BIPAP last night. Patient reports someone took it away from his room. He reports when he walked to the bathroom this am his oxygen had dropped to 80% but he did not feel any SOB. He came back up quickly after the nurses increased his oxygen to 4 l. Ihsan uses 3 l at home. PHYSICAL EXAM: VITALS: As below. GENERAL APPEARANCE: cachectic / NAD HEENT: NCAT/ BIPAP mask in place , Bitemporal wasting, CARDIOVASCULAR: RRR/NMRG / no lower extremity edema. LUNGS: there is decreased air entry bilaterally / breath sounds are diminished bilaterally ABDOMEN: scaphoid/ soft &NT MUSCULOSKELETAL: DIANE x 4 INTEGUMENT: doesnt have facial plethora NEUROLOGICAL: No focal neurodeficits. PSYCHIATRIC: A&O x 3 LABS: Reviewed. IMAGING: Liver US: No liver lesion is identified from the images obtained. The contour of the liver is smooth. Gallbladder: The gallbladder is normal in appearance. No stones, masses, gallbladder wall thickening, or pericholecystic fluid are noted. No sonographic Mckeon's sign was reported by the cytotechnologist/histotechnologist. Common bile duct: The common bile duct is normal in caliber measures 5 mm in diameter at the level of the julia hepatis. IMPRESSION: Trace amount of free fluid in the right upper quadrant of the abdomen around the liver. Chest x-ray Findings: COPD. No focal consolidation, effusion, or pneumothorax. Mediastinum and cardiac silhouette are normal. Skeletal structures are intact. Impression: COPD. CTA chest IMPRESSION: 1. No acute findings in the chest. No pulmonary embolism. 2. No thoracic aortic aneurysm, pseudoaneurysm, intramural hematoma, penetrating atherosclerotic ulcer, or dissection. 3. Extensive centrilobular emphysematous changes. 4. Dilation of the pulmonary artery trunk, right ventricle, and right atrium, which may indicate pulmonary artery hypertension. 5. Small amount of free fluid in the right upper quadrant of the abdomen. MICROBIOLOGY: 10/14/19 Blood Culture, Received Pending 10/14/19 Respiratory Virus Panel (PCR) ([facility]) - Final, Complete 10/14/19 Blood Culture, Received Pending ASSESSMENT AND PLAN: is a 53 yr old w a hx of COPD who is admitted for management of Acute COPD with Acute on chronic Hypercapneic/ Hypoxemic Respiratory Failure requiring BIPAP. Acute on chronic Hypercapneic/ Hypoxemic Respiratory Failure 2/2 Acute COPD Trigger may be: smoke exposure or less likely myocardial ischemia Duonebs, advair, albuterol, prednisone, spiriva Table top 16/5 setting. will need long prednosone taper with 5 days of each dosage. Needs to use the table top during sleep at night and naps. Referral to [facility] on discharge for sleep study. Type 2 NSTEMI/Demand Ischemia He didnt have CP EKG showed a HR of 88 w/o acute ST changes Troponin ranged from 0.37 to 0.38 ASA/ lipid panel and Echo Pulm HTN f/u Echo to determine PSAP Hepatocellular Transaminitis Most probably hepatic congestion from chronic right heart failure from pulmonary hypertension Hep panel negative Liver US as above. Lactic Acidosis Likely 2/2 hypoxia Hypomagnesemia Likely 2/2 PPI which causes mag loss via reduced mag absorption replaced Mild Hyponatremia probably due to chronic lung disease 1st Degree AV Block EKG showed MD of 111 Pulmonary Cachexia His BMI is 15.7 but his albumin is 3.5 VS,Fishbone, I+O VS, Fishbone, I+O Laboratory Tests 10/17/19 06:34 Vital Signs Date Time Temp Pulse Resp B/P (MAP) Pulse Ox O2 Delivery O2 Flow Rate FiO2 10/17/19 04:35 97.7 89 18 108/63 (78) 96 Nasal Cannula 3.0 10/16/19 04:33 30 I&O- Last 24 Hours up to 6 AM 10/17/19 06:00 Intake Total 780 ml Output Total 400 ml Balance 380 ml EFE VELA MD Oct 17, 2019 10:17
--- NOTE | 2019-10-17 10:44 | CCN ---
DATE OF SERVICE: 10/17/2019 Mr. Deras is now on 5 Rob. He states he had a relatively decent night last night. He is on supplemental oxygen at 3 liters. Orders were written yesterday for him to be converted from night time and sleep time BiPAP to tabletop at 16/5. However, the patient states that they did bring a machine into his room, but there was some sort of problem with that and they took away shortly thereafter and he was not placed on tabletop BiPAP during the night. I have asked his nurse to look into this. Otherwise, the patient denies any other new issues. He states his breathing has been stable. He denies fevers or chills. PHYSICAL EXAMINATION: Vitals: Temperature 97.7, pulse 89, respiratory rate 18, blood pressure 108/63, pulse ox 96% on 3 liters. General: The patient is alert and oriented x3. Mood and affect appropriate. He speaks in complete sentences. HEENT: Head is normocephalic, atraumatic. Moist mucous membranes. Tongue is midline. Neck: Neck is supple. No cervical lymphadenopathy. No jugular venous distention (JVD). Trachea is midline. Pulmonary: Diminished breath sounds, but clear. No wheezes, rales, rhonchi or crackles. No accessory muscle use. Heart: Regular rate and rhythm. S1, S2. No murmurs. Abdomen: Positive bowel sounds, soft, nontender. No rebound or guarding. Extremities: No clubbing, cyanosis or edema. LABORATORY DATA: WBC 6.1, hemoglobin 13.2, hematocrit 42.5, and platelets 198. Chemistry is pending. ASSESSMENT/PLAN: 1. Hypercarbic respiratory failure. The patient has hypercarbic respiratory failure secondary to COPD exacerbation and emphysema. Plan was for him to be transitioned from BiPAP to tabletop with settings of 16/5. These orders were written yesterday. However, apparently this was not carried out. According to the patient, the machine was brought in, but then taken away. There is no explanation available. I have asked the nurses to look into this and make sure that the patient is placed on tabletop with settings over 16/5 as ordered. I have asked them to notify the pulmonary team if there are further issues with this. The patient's will likely need outpatient sleep testing in order to be able to obtain outpatient BiPAP. Therefore, when he is discharged, he will need possible followup with [facility] pulmonary in order to initiate the workup to get him the home BiPAP. The patient is currently on prednisone 40 mg daily. He will need to be tapered down with prednisone 40 mg for a total of 5 days and then 30 mg for 5 days and then 20 mg for 5 days and then 10 mg for 5 days. He is continuing with DuoNebs. He is on Advair. Spiriva was initiated yesterday as well. Advance directives were discussed with the patient and forms were filled out. Additionally, the patient will need evaluation of a nonspecific rounded lesion of the left wall of the proximal esophagus that was noted on chest CT. We have discussed this with the medicine team and will defer evaluation of that to the medicine team.
[2019-10-17 11:05] LABS: BLOOD UREA NITROGEN 12 MG/DL (7-18); CALCIUM LEVEL 8.7 MG/DL (8.5-10.1); CHLORIDE LEVEL 94 MEQ/L (98-107); CREATININE FOR GFR 0.25 MG/DL (0.70-1.30); GLOMERULAR FILTRATION RATE > 60.0 (>56); GLUCOSE, FASTING 75 MG/DL (70-100); POTASSIUM SERUM 4.3 MEQ/L (3.5-5.1); SODIUM LEVEL 137 MEQ/L (136-145)
[2019-10-17 13:44] LABS: ALBUMIN 2.9 GM/DL (3.2-5.2); ALT/SGPT 766 IU/L (0-32); BILIRUBIN,DIRECT 0.2 MG/DL (0.0-0.2); BILIRUBIN,TOTAL 0.4 MG/DL (0.2-1.0); TOTAL PROTEIN 5.1 GM/DL (6.4-8.2)
[2019-10-17 13:53] LABS: CARBON DIOXIDE LEVEL 39 MEQ/L (21-32)
[2019-10-17 14:00] VITALS: BP 127/73
[2019-10-17 14:49] VITALS: O2SAT 95
[2019-10-17 15:21] VITALS: BP 113/73
[2019-10-17 22:00] VITALS: BP 118/73
[2019-10-18] MEDS: IPRATROPIUM 0.5MG/ALBUTEROL 2.5MG INH SOL UD 3ML (DUONEB) NEB SCH ×3 (04:00→11:13)
[2019-10-18 06:00] VITALS: BP 117/74
[2019-10-18 06:34] LABS: EOS % 0.6 % (0.0-3.0); HEMATOCRIT 43.7 % (42.0-52.0); HEMOGLOBIN 13.3 g/dl (13.5-17.5); LYMPH # 0.8 10^3/uL (1.5-5.0); LYMPH % 12.5 % (24.0-44.0); MEAN CORPUSCULAR HEMOGLOBIN 28.9 pg (27.0-33.0); MEAN CORPUSCULAR HGB CONC 30.4 g/dl (32.0-36.5); MEAN CORPUSCULAR VOLUME 94.8 fl (80.0-96.0); MONO # 0.6 10^3/uL (0.0-0.8); MONO % 9.1 % (0.0-5.0); NEUTROPHILS # 5.2 10^3/uL (1.5-8.5); NEUTROPHILS % 77.5 % (36.0-66.0); PLATELET COUNT, AUTOMATED 182 10^3/uL (150-450); RED BLOOD COUNT 4.61 10^6/uL (4.30-6.10); WHITE BLOOD COUNT 6.7 10^3/uL (4.0-10.0)
[2019-10-18 06:54] LABS: ALBUMIN 2.8 GM/DL (3.2-5.2); ALT/SGPT 583 U/L (12-78); BILIRUBIN,DIRECT 0.1 MG/DL (0.0-0.2); BILIRUBIN,TOTAL 0.4 MG/DL (0.2-1.0); BLOOD UREA NITROGEN 13 MG/DL (7-18); CALCIUM LEVEL 9.1 MG/DL (8.5-10.1); CARBON DIOXIDE LEVEL 44 MEQ/L (21-32); CHLORIDE LEVEL 93 MEQ/L (98-107); CREATININE FOR GFR 0.29 MG/DL (0.70-1.30); GLOMERULAR FILTRATION RATE > 60.0 (>56); GLUCOSE, FASTING 125 MG/DL (70-100); POTASSIUM SERUM 4.1 MEQ/L (3.5-5.1); SODIUM LEVEL 141 MEQ/L (136-145); TOTAL PROTEIN 5.1 GM/DL (6.4-8.2)
[2019-10-18] MEDS: ADVAIR HFA 230/21MCG INHALER INH SCH (07:07)
[2019-10-18] MEDS: TIOTROPIUM INHALER/CAPSULE (SPIRIVA) INH SCH (07:07)
[2019-10-18] MEDS: predniSONE 20 MG TAB PO SCH (08:43)
[2019-10-18] MEDS: NYSTATIN 500,000 U/5 ML SUSP UDC PO SCH (08:43)
[2019-10-18] MEDS: ENOXAPARIN 40MG/0.4ML SYRINGE (J1650 PER 10MG) SC SCH (08:44)
[2019-10-18] MEDS: PANTOPRAZOLE 40MG TAB (PROTONIX) PO SCH (08:44)
[2019-10-18] MEDS: DULoxetine 30 MG CAP (CYMBALTA) PO SCH (08:44)
[2019-10-18] MEDS ORDERED: PRED10TA2 PO (10:23)
--- NOTE | 2019-10-18 13:48 | CCN ---
DATE: 10/18/2019 HISTORY: Mr. Deras is seen [facility]. He reports he is overall feeling much improved. He states his breathing has been back to baseline. He is currently using supplemental oxygen at 3 liters. He did get the tabletop BiPAP last night and states that he is doing well tolerating that during sleep. He denies any fevers or chills. The patient's attending is planning on discharging today. PHYSICAL EXAMINATION: Vitals: Temperature is 98.0, pulse 70, respiratory rate 18, blood pressure is 117/74, pulse oximetry 95% on 3 liters. General: The patient is alert and oriented x3. Mood and affect appropriate. The patient speaks in complete sentences. HEENT: Head is normocephalic, atraumatic. Moist mucous membranes. Tongue is midline. Neck: Neck is supple. No cervical lymphadenopathy. No jugular venous distention (JVD). Trachea is midline. Pulmonary: Diminished breath sounds, but clear. No wheezes, rales, rhonchi or crackles. No accessory muscle use. Some prolongation of expiratory phase. Heart: Regular rate and rhythm. S1, S2. No murmurs. Abdomen: Positive bowel sounds, soft, nontender. No rebound or guarding. Extremities: No clubbing, cyanosis or edema. LABORATORY DATA: WBC 6.7, hemoglobin 13.3, hematocrit is 43.7, platelets 182. Sodium 141, potassium 4.1, chloride 93, carbon dioxide 44, BUN 13, creatinine 0.29, glucose 125, calcium 9.1, total bilirubin 0.4, direct bilirubin 0.1, AST 143, ALT 583, alkaline phosphatase 69, total protein 5.1, albumin 2.8. ASSESSMENT/PLAN: 1. Hypercarbic respiratory failure. Likely due to chronic obstructive pulmonary disease (COPD) exacerbation and emphysema. The patient has been doing well on BiPAP and will need to be assessed in the outpatient setting in order to qualify for outpatient BiPAP. Therefore, upon discharge, the patient should be set up with an outpatient appointment with [facility] as soon as possible in order to be evaluated for outpatient BiPAP . I did communicate this both to his nurse and to his medicine attending, Dr. Raya. Additionally, the patient is currently on oral prednisone and should be placed on a prednisone taper at discharge with a prednisone taper 40 mg daily for 5 days, then 30 mg daily for 5 days, then 20 mg daily for 5 days, then 10 mg daily for 5 days. The patient could be continued on his outpatient respiratory maintenance medications. As noted, he should followup with pulmonary. Furthermore, as noted, the patient did have a nonspecific rounded lesion on left wall of the proximal esophagus on chest CT. I notified the patient of this abnormality as well as discussed this with his medicine attending physician, Dr. Raya, who stated that she would further discuss this with the patient and advise the patient on outpatient followup and evaluation for this. I will defer any further evaluation of this esophageal abnormality to Dr. Raya.
[2019-10-19] MEDS ORDERED: CEFD300CAP PO (08:04)
--- NOTE | 2019-10-19 08:07 | IPNPDOC ---
Text Note Date of Service The patient was seen on 10/19/19. NOTE Called patient for positive sputum cultures and sent antibiotic prescription to his pharmacy. Spoke with Koki Carter his PMD about the esophageal nodule in the proximal par. She is going to arrange for a follow up. VS,Fishbone, I+O VS, Fishbone, I+O Vital Signs Date Time Temp Pulse Resp B/P (MAP) Pulse Ox O2 Delivery O2 Flow Rate FiO2 10/18/19 10:50 3.0 10/18/19 06:00 98.0 70 18 117/74 (88) 95 Nasal Cannula 10/16/19 04:33 30 I&O- Last 24 Hours up to 6 AM 10/19/19 07:00 Intake Total 300 ml Balance 300 ml EFE VELA MD Oct 19, 2019 08:07
--- NOTE | 2019-10-19 08:23 | DS.PDOC ---
Discharge Summary General Date of Admission Oct 14, 2019 at 23:44 Date of Discharge 10/18/19 Discharge Summary PROCEDURES PERFORMED DURING STAY: ECHO: 1. Study is of acceptable technical quality. The patient is in sinus rhythm. 2. Normal LV size, systolic and diastolic function. 3. Dilated hypokinetic right ventricle. 4. No hemodynamically significant valvular disease. 5. Likely normal central venous pressure. 6. Calculated pulmonary artery pressure was only in 30s, but based on morphology of the right ventricle, I do expect that the patient has significant pulmonary hypertension DISCHARGE DIAGNOSES: Acute on Chronic respiratory failure with hypoxia and hypercarbia End stage COPD exacerbation Severe pulmonary hypertension Transaminitis Hyponatremia Hypomagnesemia Lactic acidosis Demand ischemia Pulmonary cachexia Esophageal nodule in the proximal part needs follow up. COMPLICATIONS/CHIEF COMPLAINT: Copd With Exacerbation. HOSPITAL COURSE: is a 53 yr old w a hx of COPD who is admitted for management of Acute COPD with Acute on chronic Hypercapneic/ Hypoxemic Respiratory Failure requiring BIPAP. Acute on chronic Hypercapnic/ Hypoxemic Respiratory Failure 2/2 Acute COPD Trigger may be: smoke exposure or less likely myocardial ischemia DuTiago mazariegos, prednisone slow taper. Table top 16/5 setting. will need long prednosone taper with 5 days of each dosage. Sputum culture citerobacter. Started on Cefdinir. Referral to [facility] on discharge for sleep study. Type 2 NSTEMI/Demand Ischemia He didnt have CP EKG showed a HR of 88 w/o acute ST changes Troponin ranged from 0.37 to 0.38 Pulm HTN possibly severe. however as echo was poor quality the pressures could not be accurately measured in [facility] ECHO. Transaminitis Most probably hepatic congestion from chronic right heart failure from pulmonary hypertension Hep panel negative Liver US noted below Lactic Acidosis Likely 2/2 hypoxia Hypomagnesemia Likely 2/2 PPI which causes mag loss via reduced mag absorption replaced Mild Hyponatremia probably due to chronic lung disease Pulmonary Cachexia His BMI is 15.7 but his albumin is 3.5 DISCHARGE MEDICATIONS: Please see below. ALLERGIES: Please see below. PHYSICAL EXAMINATION ON DISCHARGE: VITAL SIGNS: Please see below. GENERAL APPEARANCE: cachectic / NAD HEENT: NCAT/ BIPAP mask in place , Bitemporal wasting, CARDIOVASCULAR: RRR/NMRG / no lower extremity edema. LUNGS: there is decreased air entry bilaterally / breath sounds are diminished bilaterally ABDOMEN: scaphoid/ soft &NT MUSCULOSKELETAL: DIANE x 4 INTEGUMENT: doesnt have facial plethora NEUROLOGICAL: No focal neurodeficits. PSYCHIATRIC: A&O x 3 LABORATORY DATA: Please see below. IMAGING: Liver US: No liver lesion is identified from the images obtained. The contour of the liver is smooth. Gallbladder: The gallbladder is normal in appearance. No stones, masses, gallbladder wall thickening, or pericholecystic fluid are noted. No sonographic Mckeon's sign was reported by the research technologist. Common bile duct: The common bile duct is normal in caliber measures 5 mm in diameter at the level of the julia hepatis. IMPRESSION: Trace amount of free fluid in the right upper quadrant of the abdomen around the liver. Chest x-ray Findings: COPD. No focal consolidation, effusion, or pneumothorax. Mediastinum and cardiac silhouette are normal. Skeletal structures are intact. Impression: COPD. CTA chest IMPRESSION: 1. No acute findings in the chest. No pulmonary embolism. 2. No thoracic aortic aneurysm, pseudoaneurysm, intramural hematoma, penetrating atherosclerotic ulcer, or dissection. 3. Extensive centrilobular emphysematous changes. 4. Dilation of the pulmonary artery trunk, right ventricle, and right atrium, which may indicate pulmonary artery hypertension. 5. Small amount of free fluid in the right upper quadrant of the abdomen. ACTIVITY: [As tolerated]. DIET: As tolerated DISPOSITION: 01 Home, Self-Care. DISCHARGE INSTRUCTIONS: Follow up with Dr Zuniga in 1 week PMD in 1 week ITEMS TO FOLLOWUP ON ON OUTPATIENT: Proximal esophageal nodule needs follow up. DISCHARGE CONDITION: [Stable]. TIME SPENT ON DISCHARGE: 35 minutes. Vital Signs/I&Os Vital Signs Date Time Temp Pulse Resp B/P (MAP) Pulse Ox O2 Delivery O2 Flow Rate FiO2 10/18/19 10:50 3.0 10/18/19 06:00 98.0 70 18 117/74 (88) 95 Nasal Cannula 10/16/19 04:33 30 I&O- Last 24 Hours up to 6 AM 10/19/19 07:00 Intake Total 300 ml Balance 300 ml Microbiology Microbiology 10/15/19 Gram Stain - Final, Complete 10/15/19 Sputum Culture - Final, Complete Citrobacter Koseri 10/14/19 Blood Culture - Preliminary, Resulted No Growth after 72 hours. All specime... 10/14/19 Respiratory Virus Panel (PCR) (KIM) - Final, Complete 10/14/19 Blood Culture - Preliminary, Resulted No Growth after 72 hours. All specime... Discharge Medications Scheduled Cefdinir (Cefdinir) 300 Mg Capsule, 1 CAP PO BID Duloxetine HCl (Duloxetine HCl) 60 Mg Capsule.dr, 60 MG PO DAILY, (Reported) Fluticasone/Umeclidin/Vilanter (Trelegy Ellipta 100-62.5-25) 1 Each Blst.w.dev, 1 PUFF INH DAILY, (Reported) Pantoprazole Sodium (Pantoprazole Sodium) 40 Mg Tablet.dr, 40 MG PO DAILY, (Reported) Prednisone (Prednisone) 10 Mg Tablet, 10 MG PO TAPER Take 3 tabs daily x 5 days, then 2 tabs daily x 5 days, then 1 tabs daily x 5 days then stop Scheduled PRN Albuterol Sulfate (Proair Hfa) 8.5 Gm Hfa.aer.ad, 2 PUFFS PO QID PRN for SHORTNESS OF BREATH, (Reported) Allergies Coded Allergies: No Known Allergies (Unverified , 10/14/19) EFE VELA MD Oct 19, 2019 08:23
== END 2019-10-18 12:44 | disposition home or self-care (01) | DRG 133 ==
LOC: M ED 17:08 → M ED INP 23:44 → ENRESERV 10-15 00:10 → M ICU 10-15 01:18 → M MS5PR 10-16 16:17 → M MSPAV 10-17 15:15
PROVIDERS: ADMIT Internal Medicine; ATTEND Internal Medicine Nephrology
DX: J96.01 Acute respiratory failure with hypoxia (principal); R64 Cachexia; E87.2 Acidosis; B37.0 Candidal stomatitis; I24.8 Other forms of acute ischemic heart disease; I27.20 Pulmonary hypertension, unspecified; Z99.81 Dependence on supplemental oxygen; E87.1 Hypo-osmolality and hyponatremia; J96.02 Acute respiratory failure with hypercapnia; Z66 Do not resuscitate; J44.1 Chronic obstructive pulmonary disease with (acute) exacerbation; E83.42 Hypomagnesemia; K22.8 Other specified diseases of esophagus; I50.812 Chronic right heart failure; R74.0 Nonspecific elevation of levels of transaminase and lactic acid dehydrogenase [LDH]; I44.0 Atrioventricular block, first degree; Z68.1 Body mass index [BMI] 19.9 or less, adult; Z79.899 Other long term (current) drug therapy; Z87.891 Personal history of nicotine dependence; Z11.59 Encounter for screening for other viral diseases

== ENCOUNTER → 2019-11-02 | Outpatient (CLI) | payer BC ==
[~2019-11-02] MED LIST: AMOX875T2 PO; AZIT500T5 PO; CEFD300CAP PO; DULO1CAP5; DULO60CA35 PO; FOLI1TAB11 PO; METH4PACK PO; PANT40TA29 PO; PRED10TA2 PO; PROAAER10 PO; TAB-TAB2 PO; TREL1AER INH; VITA100T28 PO
--- NOTE | 2019-12-21 14:26 | SLEEPCENT ---
DATE: 11/02/2019 ORDERED BY: Jovon Zuniga DO Nocturnal polysomnography was performed for evaluation of sleep physiology in this patient with a history of non-restorative sleep and morning headaches. Eight hours and 16 minutes of data were reviewed. There were 383.5 minutes of sleep identified. Sleep latency was short at one minute. REM latency was delayed at 250.5 minutes. Sleep architecture was poor. There was one REM cycle appreciated. Periods of wake resulted in a reduced sleep efficiency of 79.6%. The electrocardiogram showed what appeared to be a sinus rhythm with an average heart rate of 106, rate range 90-120. EEG showed some artifactual changes, some coarsening and background, otherwise no focal events and normal waveforms for wake and sleep. There were only 11 obstructive respiratory events identified of ten seconds in duration or greater for an apnea hypopnea index of 1.7. Significant snoring, however, was noted over the course of the study and respiratory related arousals occurred three times per hour. Oxygen desaturations were not seen below 90%. Some artifactual changes were seen in the pulse oximetry tracing. There was some limb activity noted, particularly in the mid portion of the study. However, limb movement arousal index was only 3.6. IMPRESSION: Normal nocturnal polysomnography with snoring. MTDD
== END ==
LOC: M SLEEP 20:00
PROVIDERS: ATTEND Internal Medicine Pulmonary Disease
DX: R06.83 Snoring (principal)

== ENCOUNTER 2019-12-25 21:28 | Inpatient (IN) | payer BC ==
[~2019-12-25] VITALS: Ht 167.6 cm; Wt 38.4 kg
[~2019-12-25 21:28] MED LIST changes: -AZIT500T5 PO; -FOLI1TAB11 PO; -TAB-TAB2 PO; -VITA100T28 PO
[2019-12-25 23:30] VITALS: BP 125/68
[2019-12-25] MEDS ORDERED: PIPERACILLIN/TAZOBACTAM SOD 3.375 GM in D5W MINI-BAG PLUS 50 ML IV ONE (23:30)
[2019-12-25 23:37] LABS: ABG BASE EXCESS 30.4 (-2.0-2.0); ABG HCO3 66.2 MEQ/L (22.0-26.0); ABG O2 SATURATION 97.7 % (95.0-99.0); ABG PARTIAL PRESSURE O2 108.3 mmHg (75.0-100.0); ABG TOTAL CO2 70.8 MEQ/L (22.0-29.0); ABG pH (ARTERIAL) 7.261 UNITS (7.350-7.450)
[2019-12-25 23:41] LABS: ABG PARTIAL PRESSURE CO2 150.6 mmHg (35.0-45.0)
[2019-12-26] VITALS (16 sets, daily range): BP systolic 103–132; BP diastolic 73–88; O2SAT 96
[2019-12-26 00:49] LABS: C REACTIVE PROTEIN QUANTITATIV 0.52 MG/DL (0.00-0.30); CK-MB VALUE MASS 3.7 NG/ML (<3.6); CPK CREATINE PHOSPHOKINASE 30 U/L (39-308); MAGNESIUM LEVEL 1.7 MG/DL (1.8-2.4); MB/CK RELATIVE INDEX 12.33 (< OR =4); NT-PRO BNP 457 PG/ML (<125); PHOSPHORUS LEVEL 4.5 MG/DL (2.5-4.9); TROPONIN I 0.07 NG/ML (< 0.10)
[2019-12-26] MEDS: cefTRIAXone SOD 2 GM in D5W MINI-BAG PLUS 50 ML IV SCH (01:05)
[2019-12-26] MEDS ORDERED: TAB-TAB2 PO (01:21)
[2019-12-26] MEDS ORDERED: FOLI1TAB11 PO (01:21)
[2019-12-26] MEDS ORDERED: VITA100T28 PO (01:21)
[2019-12-26 01:22] LABS: ALBUMIN 3.7 GM/DL (3.2-5.2); ALT/SGPT 22 U/L (12-78); BILIRUBIN,TOTAL 0.4 MG/DL (0.2-1.0); BLOOD UREA NITROGEN 13 MG/DL (7-18); CALCIUM LEVEL 9.5 MG/DL (8.5-10.1); CARBON DIOXIDE LEVEL 54 MEQ/L (21-32); CHLORIDE LEVEL 87 MEQ/L (98-107); CREATININE FOR GFR 0.31 MG/DL (0.70-1.30); GLOMERULAR FILTRATION RATE > 60.0 (>56); GLUCOSE, FASTING 112 MG/DL (70-100); POTASSIUM SERUM 4.2 MEQ/L (3.5-5.1); SODIUM LEVEL 140 MEQ/L (136-145); TOTAL PROTEIN 6.7 GM/DL (6.4-8.2)
[2019-12-26] MEDS: AZITHROMYCIN INJ 500 MG, VIAL MATE ADAPTER 1 EACH in D5W 250 ML IV SCH (01:43)
[2019-12-26 02:13] LABS: ABG BASE EXCESS 23.6 (-2.0-2.0); ABG HCO3 54.9 MEQ/L (22.0-26.0); ABG O2 SATURATION 97.1 % (95.0-99.0); ABG PARTIAL PRESSURE O2 94.4 mmHg (75.0-100.0); ABG STANDARD HCO3 48.6 MEQ/L (22.0-26.0); ABG TOTAL CO2 57.9 MEQ/L (22.0-29.0)
[2019-12-26 02:15] LABS: ABG PARTIAL PRESSURE CO2 99.4 mmHg (35.0-45.0)
[2019-12-26] MEDS: IPRATROPIUM 0.5MG/ALBUTEROL 2.5MG INH SOL UD 3ML (DUONEB) NEB SCH ×6 (03:53→19:36)
[2019-12-26 04:30] LABS: BASO % 0.1 % (0.0-1.0); HEMATOCRIT 40.2 % (42.0-52.0); LYMPH # 0.3 10^3/uL (1.5-5.0); LYMPH % 4.6 % (24.0-44.0); MEAN CORPUSCULAR HEMOGLOBIN 29.2 pg (27.0-33.0); MEAN CORPUSCULAR HGB CONC 29.9 g/dl (32.0-36.5); MEAN CORPUSCULAR VOLUME 97.8 fl (80.0-96.0); MONO # 0.3 10^3/uL (0.0-0.8); NEUTROPHILS # 6.1 10^3/uL (1.5-8.5); NEUTROPHILS % 90.9 % (36.0-66.0); PLATELET COUNT, AUTOMATED 190 10^3/uL (150-450); RED BLOOD COUNT 4.11 10^6/uL (4.30-6.10); WHITE BLOOD COUNT 6.7 10^3/uL (4.0-10.0)
[2019-12-26 05:17] LABS: ALBUMIN 3.6 GM/DL (3.2-5.2); ALT/SGPT 20 U/L (12-78); BILIRUBIN,TOTAL 0.2 MG/DL (0.2-1.0); BLOOD UREA NITROGEN 14 MG/DL (7-18); CALCIUM LEVEL 9.6 MG/DL (8.5-10.1); CHLORIDE LEVEL 86 MEQ/L (98-107); CREATININE FOR GFR 0.37 MG/DL (0.70-1.30); GLOMERULAR FILTRATION RATE > 60.0 (>56); GLUCOSE, FASTING 158 MG/DL (70-100); SODIUM LEVEL 138 MEQ/L (136-145); TOTAL PROTEIN 6.7 GM/DL (6.4-8.2)
[2019-12-26 05:25] LABS: CARBON DIOXIDE LEVEL 54 MEQ/L (21-32)
[2019-12-26] MEDS: methylPREDNISolone 125MG 2ML VIAL IV SCH ×2 (06:10→18:07)
[2019-12-26 06:37] LABS: ABG BASE EXCESS 28.4 (-2.0-2.0); ABG PARTIAL PRESSURE O2 80.8 mmHg (75.0-100.0); ABG STANDARD HCO3 54.3 MEQ/L (22.0-26.0); ABG TOTAL CO2 61.8 MEQ/L (22.0-29.0); ABG pH (ARTERIAL) 7.429 UNITS (7.350-7.450)
[2019-12-26 06:40] LABS: ABG PARTIAL PRESSURE CO2 91.1 mmHg (35.0-45.0)
[2019-12-26] MEDS: ENOXAPARIN 40MG/0.4ML SYRINGE (J1650 PER 10MG) SC SCH (09:29)
[2019-12-26] MEDS: PANTOPRAZOLE 40MG VIAL (C9113 PER 1) IV SCH (09:29)
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
--- NOTE | 2019-12-26 11:06 | CCN ---
DATE: 12/26/2019 This is In addition to the critical care note already dictated by Dr. Adela Gamino. I Jovon Zuniga attended the patient at bedside for hypercarbic respiratory failure. He required bilevel noninvasive therapy. He still has altered mental status, metabolic encephalopathy from hypercarbia. He does not recognize me as his pulmonary physician and on a usual day he would. He has known severe end stage chronic obstructive pulmonary disease (COPD) to the point where I have placed him on a noninvasive ventilator at home at night. Despite, he continues to have recurrent hospitalizations for COPD exacerbations and hypercarbia despite no obvious infection. His last hospital stay was actually at [facility] where they had suggested palliative care. I will again re-approach this with him when he has stabilized. Overall his life expectancy is less than one year despite his young age. We had discussed lung transplant in the past. However, the patient did not stop smoking and has had too much weight loss since then. He has significantly elevated bicarb due to compensation for his chronic hypercarbia. At 2:00 a.m. his arterial blood gas had improved to 7.36, pCO2 of 99, PaO2 of 94. PLAN: At this point in time we will continue him on antibiotics, Ceftriaxone and Azithromycin, IV steroids, DVT prophylaxis and I have added GI prophylaxis to the residents orders. His prognosis remains very guarded. We will discuss his DNR status with his family when they become available. JENI
--- NOTE | 2019-12-26 14:17 | CCN ---
DATE: 12/26/2019 SUBJECTIVE: Mr. Deras is seen in the ICU. He was admitted overnight with hypercarbic respiratory failure. He remains on BiPAP. The patient does wake to voice and states that he is feeling better today. He does note he feels his breathing is better with BiPAP. He denies fevers or chills. He states that he has had some increased cough prior to coming in. Nursing denies any new issues with the patient this morning. PHYSICAL EXAMINATION: Vital signs: Temperature is 97.9, pulse 108, blood pressure 122/77, respiratory rate 17, oxygen saturation is 95% on BiPAP 18/10 with a rate of 12. FiO2 30%, tidal volumes are in the 400s. General: The patient is alert and oriented. He is somewhat sluggish. He is using BiPAP. He is arousable. HEENT: Head is normocephalic, atraumatic. Pupils are equal and reactive to light. Moist mucous membranes. Tongue is midline. Neck is supple, no cervical lymphadenopathy. Trachea is midline. Pulmonary: Diminished breath sounds in all espinoza, no obvious wheezes, rales, rhonchi. Some accessory muscle use is noted. Heart regular rate and rhythm, S1, S2, no murmurs. Abdomen: Positive bowel sounds, soft and nontender, no rebound or guarding, no obvious hepatosplenomegaly. Extremities: No cyanosis, clubbing, or edema. Skin: Skin is warm and dry. Neurologic: Nonfocal grossly. LABS: WBC 6.7, hemoglobin 12.0, hematocrit 40.2, platelets 190. Sodium 138, potassium 4.0, chloride 86, CO2 54, BUN 14, creatinine 0.37, glucose 158, calcium 9.6, total bilirubin is 0.2, AST 19, ALT 20, alkaline phosphatase 75, total protein 6.7, albumin 3.6. Blood gas: pH 7.429, pCO2 91.1, pO2 80.8. ASSESSMENT AND PLAN: Acute hypercarbic respiratory failure. The patient has been tolerating BiPAP. His most recent blood gas from this morning does show that his carbon dioxide is decreased to 91 from 150 from his initial blood gas last night. He remains on the BiPAP. Oxygen is being titrated and his oxygen saturations have been good. He does end stage lung disease and a history of smoking. He does have a poor prognosis and Dr. Zuniga feels that his life expectancy is less than a year. The patient is being covered for possible respiratory infectious etiology with Azithromycin and Ceftriaxone. He is getting Solu-Medrol. We will continue to monitor the patient. JENI
--- NOTE | 2019-12-26 19:35 | ECGEPIP ---
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
[2019-12-27] VITALS (10 sets, daily range): BP systolic 109–144; BP diastolic 70–88; O2SAT 98
[2019-12-27] MEDS: IPRATROPIUM 0.5MG/ALBUTEROL 2.5MG INH SOL UD 3ML (DUONEB) NEB SCH ×7 (00:18→23:38)
[2019-12-27] MEDS: AZITHROMYCIN INJ 500 MG, VIAL MATE ADAPTER 1 EACH in D5W 250 ML IV SCH (01:22)
[2019-12-27 04:24] LABS: BASO % 0.1 % (0.0-1.0); HEMATOCRIT 35.4 % (42.0-52.0); HEMOGLOBIN 11.1 g/dl (13.5-17.5); LYMPH # 0.6 10^3/uL (1.5-5.0); LYMPH % 8.1 % (24.0-44.0); MEAN CORPUSCULAR HGB CONC 31.4 g/dl (32.0-36.5); MEAN CORPUSCULAR VOLUME 92.4 fl (80.0-96.0); MONO # 0.7 10^3/uL (0.0-0.8); MONO % 9.5 % (0.0-5.0); NEUTROPHILS # 5.8 10^3/uL (1.5-8.5); PLATELET COUNT, AUTOMATED 194 10^3/uL (150-450); RED BLOOD COUNT 3.83 10^6/uL (4.30-6.10)
[2019-12-27 04:43] LABS: ALBUMIN 3.5 GM/DL (3.2-5.2); ALT/SGPT 19 U/L (12-78); BILIRUBIN,TOTAL 0.2 MG/DL (0.2-1.0); BLOOD UREA NITROGEN 14 MG/DL (7-18); CALCIUM LEVEL 9.7 MG/DL (8.5-10.1); CARBON DIOXIDE LEVEL 44 MEQ/L (21-32); CHLORIDE LEVEL 86 MEQ/L (98-107); CREATININE FOR GFR 0.49 MG/DL (0.70-1.30); GLOMERULAR FILTRATION RATE > 60.0 (>56); GLUCOSE, FASTING 97 MG/DL (70-100); POTASSIUM SERUM 3.3 MEQ/L (3.5-5.1); SODIUM LEVEL 135 MEQ/L (136-145)
[2019-12-27] MEDS: methylPREDNISolone 125MG 2ML VIAL IV SCH (06:30)
[2019-12-27] MEDS: PANTOPRAZOLE 40MG VIAL (C9113 PER 1) IV SCH (08:05)
[2019-12-27] MEDS: ENOXAPARIN 40MG/0.4ML SYRINGE (J1650 PER 10MG) SC SCH (08:06)
[2019-12-27] MEDS ORDERED: POTASSIUM CHLORIDE 10 MEQ SR TABLET PO ONE (09:00)
[2019-12-27 09:02] LABS: ABG BASE EXCESS 17.5 (-2.0-2.0); ABG HCO3 45.5 MEQ/L (22.0-26.0); ABG O2 SATURATION 97.7 % (95.0-99.0); ABG PARTIAL PRESSURE O2 104.2 mmHg (75.0-100.0); ABG STANDARD HCO3 41.5 MEQ/L (22.0-26.0); ABG TOTAL CO2 47.8 MEQ/L (22.0-29.0); ABG pH (ARTERIAL) 7.416 UNITS (7.350-7.450)
[2019-12-27 09:06] LABS: ABG PARTIAL PRESSURE CO2 72.5 mmHg (35.0-45.0)
--- NOTE | 2019-12-27 18:04 | IPNPDOC ---
Text Note Date of Service The patient was seen on 12/27/19. NOTE SUBJECTIVE: Patient seen and examined in the ICU. States his breathing is feeling better, especially with BiPAP. He is concerned about seeing his grandaughter. No other medical complaints. Objective: Vitals: see below General: NAD, lying comfortably in bed, cachectic, appears older than stated age, chronically ill appearing HEENT: NC/AT, EOMI Pulmonary: Diminished breath sounds in all espinoza, no obvious wheezes, rales, rhonchi. Some accessory muscle use is noted. Heart: +S1S2, RRR Abdomen: Positive bowel sounds, soft and nontender, no rebound or guarding, no obvious hepatosplenomegaly. Extremities: No cyanosis, clubbing, or edema. Skin: Skin is warm and dry. Neurologic: Nonfocal grossly. ASSESSMENT AND PLAN: 54 yo male with PMHx end stage COPD admitted for acut e/chronic hypercarbic respiratory failure #acute/chronic hypercarbic respiratory failure - sating well on supplemental oxygen via nasal cannula - awaiting insurance approval for [facility] bipap for home use VS,Fishbone, I+O VS, Fishbone, I+O Laboratory Tests 12/27/19 04:03 Vital Signs Date Time Temp Pulse Resp B/P (MAP) Pulse Ox O2 Delivery O2 Flow Rate FiO2 12/27/19 16:00 3.0 12/27/19 16:00 98.4 91 17 132/78 (96) 97 Nasal Cannula 12/27/19 08:00 30 I&O- Last 24 Hours up to 6 AM 12/27/19 06:00 Intake Total 960 ml Output Total 650 ml Balance 310 ml OBED QUEZADA MD Dec 27, 2019 18:04
[2019-12-27] MEDS: cefTRIAXone SOD 2 GM in D5W MINI-BAG PLUS 50 ML IV SCH ×3 (23:42)
[2019-12-28] VITALS (7 sets, daily range): BP systolic 105–140; BP diastolic 75–84
[2019-12-28] MEDS: AZITHROMYCIN INJ 500 MG, VIAL MATE ADAPTER 1 EACH in D5W 250 ML IV SCH (00:29)
[2019-12-28] MEDS: IPRATROPIUM 0.5MG/ALBUTEROL 2.5MG INH SOL UD 3ML (DUONEB) NEB SCH ×5 (04:04→19:54)
[2019-12-28 04:23] LABS: BASO % 0.1 % (0.0-1.0); EOS % 0.4 % (0.0-3.0); HEMATOCRIT 37.6 % (42.0-52.0); HEMOGLOBIN 11.6 g/dl (13.5-17.5); LYMPH # 1.5 10^3/uL (1.5-5.0); LYMPH % 21.4 % (24.0-44.0); MEAN CORPUSCULAR HEMOGLOBIN 28.7 pg (27.0-33.0); MEAN CORPUSCULAR HGB CONC 30.9 g/dl (32.0-36.5); MEAN CORPUSCULAR VOLUME 93.1 fl (80.0-96.0); MONO % 14.3 % (0.0-5.0); NEUTROPHILS # 4.4 10^3/uL (1.5-8.5); NEUTROPHILS % 63.4 % (36.0-66.0); PLATELET COUNT, AUTOMATED 194 10^3/uL (150-450); RED BLOOD COUNT 4.04 10^6/uL (4.30-6.10)
[2019-12-28 05:10] LABS: ALBUMIN 3.2 GM/DL (3.2-5.2); ALT/SGPT 17 U/L (12-78); BILIRUBIN,TOTAL 0.4 MG/DL (0.2-1.0); BLOOD UREA NITROGEN 14 MG/DL (7-18); CALCIUM LEVEL 9.4 MG/DL (8.5-10.1); CARBON DIOXIDE LEVEL 44 MEQ/L (21-32); CHLORIDE LEVEL 93 MEQ/L (98-107); CREATININE FOR GFR 0.33 MG/DL (0.70-1.30); GLOMERULAR FILTRATION RATE > 60.0 (>56); GLUCOSE, FASTING 81 MG/DL (70-100); POTASSIUM SERUM 3.8 MEQ/L (3.5-5.1); SODIUM LEVEL 134 MEQ/L (136-145); TOTAL PROTEIN 6.3 GM/DL (6.4-8.2)
[2019-12-28] MEDS: predniSONE 20 MG TAB PO SCH (08:07)
[2019-12-28] MEDS: PANTOPRAZOLE 40MG VIAL (C9113 PER 1) IV SCH (08:07)
[2019-12-28] MEDS: ENOXAPARIN 40MG/0.4ML SYRINGE (J1650 PER 10MG) SC SCH (08:07)
--- NOTE | 2019-12-28 11:56 | IPNPDOC ---
Text Note Date of Service The patient was seen on 12/28/19. NOTE SUBJECTIVE: Patient seen and examined in the ICU. Feeling better again today. No medical complaints. Discussed code status, he seemed to indicate full code. It appears he is somewhat confused regarding his code status, as he has been providing conflicting answers to different providers. He stated he will discuss with his family. Objective: Vitals: see below General: NAD, lying comfortably in bed, cachectic, appears older than stated age, chronically ill appearing HEENT: NC/AT, EOMI Pulmonary: Diminished breath sounds in all espinoza, no obvious wheezes, rales, rhonchi. Heart: +S1S2, RRR Abdomen: Positive bowel sounds, soft and nontender, no rebound or guarding, no obvious hepatosplenomegaly. Extremities: No cyanosis, clubbing, or edema. Skin: Skin is warm and dry. Neurologic: Nonfocal grossly. ASSESSMENT AND PLAN: 54 yo male with PMHx end stage COPD admitted for acute/chronic hypercarbic respiratory failure #acute/chronic hypercarbic respiratory failure, COPD/emphysema - sating well on supplemental oxygen via nasal cannula - awaiting insurance approval for [facility] bipap for home use - to follow up Tuesday with DME - PT/OT - transfer to med/surg #HTN - 2 gram sodium diet #DVT prophylaxis VS,Fishbone, I+O VS, Fishbone, I+O Laboratory Tests 12/28/19 04:09 Vital Signs Date Time Temp Pulse Resp B/P (MAP) Pulse Ox O2 Delivery O2 Flow Rate FiO2 12/28/19 08:00 99.0 98 20 135/82 (99) 100 Nasal Cannula 2.0 12/27/19 08:00 30 I&O- Last 24 Hours up to 6 AM 12/28/19 06:00 Intake Total 2490 ml Output Total 2300 ml Balance 190 ml OBED QUEZADA MD Dec 28, 2019 11:56
[2019-12-29] MEDS: IPRATROPIUM 0.5MG/ALBUTEROL 2.5MG INH SOL UD 3ML (DUONEB) NEB SCH ×7 (00:15→22:34)
[2019-12-29] MEDS: cefTRIAXone SOD 2 GM in D5W MINI-BAG PLUS 50 ML IV SCH (00:57)
[2019-12-29] MEDS: AZITHROMYCIN INJ 500 MG, VIAL MATE ADAPTER 1 EACH in D5W 250 ML IV SCH (01:53)
[2019-12-29 06:00] VITALS: BP 124/77
[2019-12-29 08:32] LABS: HEMATOCRIT 37.7 % (42.0-52.0); HEMOGLOBIN 11.5 g/dl (13.5-17.5); MEAN CORPUSCULAR HGB CONC 30.5 g/dl (32.0-36.5); PLATELET COUNT, AUTOMATED 184 10^3/uL (150-450); RED BLOOD COUNT 3.97 10^6/uL (4.30-6.10); WHITE BLOOD COUNT 5.4 10^3/uL (4.0-10.0)
[2019-12-29 08:54] LABS: BLOOD UREA NITROGEN 10 MG/DL (7-18); CALCIUM LEVEL 8.9 MG/DL (8.5-10.1); CARBON DIOXIDE LEVEL 41 MEQ/L (21-32); CHLORIDE LEVEL 94 MEQ/L (98-107); CREATININE FOR GFR 0.27 MG/DL (0.70-1.30); GLOMERULAR FILTRATION RATE > 60.0 (>56); GLUCOSE, FASTING 76 MG/DL (70-100); POTASSIUM SERUM 3.8 MEQ/L (3.5-5.1); SODIUM LEVEL 141 MEQ/L (136-145)
[2019-12-29] MEDS: PANTOPRAZOLE 40MG VIAL (C9113 PER 1) IV SCH (09:22)
[2019-12-29] MEDS: predniSONE 20 MG TAB PO SCH (09:22)
[2019-12-29] MEDS: ENOXAPARIN 40MG/0.4ML SYRINGE (J1650 PER 10MG) SC SCH (09:23)
[2019-12-29 14:00] VITALS: BP 119/67
[2019-12-29 22:00] VITALS: BP 136/83
[2019-12-30] MEDS: cefTRIAXone SOD 2 GM in D5W MINI-BAG PLUS 50 ML IV SCH ×2 (00:08→23:47)
[2019-12-30] MEDS: AZITHROMYCIN INJ 500 MG, VIAL MATE ADAPTER 1 EACH in D5W 250 ML IV SCH (00:45)
[2019-12-30] MEDS: IPRATROPIUM 0.5MG/ALBUTEROL 2.5MG INH SOL UD 3ML (DUONEB) NEB SCH ×6 (03:55→23:35)
[2019-12-30 06:00] VITALS: BP 125/76
[2019-12-30] MEDS: ENOXAPARIN 40MG/0.4ML SYRINGE (J1650 PER 10MG) SC SCH (07:48)
[2019-12-30] MEDS: PANTOPRAZOLE 40MG VIAL (C9113 PER 1) IV SCH (07:48)
[2019-12-30] MEDS: predniSONE 20 MG TAB PO SCH (07:48)
[2019-12-30 07:54] LABS: HEMATOCRIT 37.9 % (42.0-52.0); HEMOGLOBIN 11.9 g/dl (13.5-17.5); MEAN CORPUSCULAR HEMOGLOBIN 29.5 pg (27.0-33.0); MEAN CORPUSCULAR HGB CONC 31.4 g/dl (32.0-36.5); PLATELET COUNT, AUTOMATED 207 10^3/uL (150-450); RED BLOOD COUNT 4.03 10^6/uL (4.30-6.10); WHITE BLOOD COUNT 7.6 10^3/uL (4.0-10.0)
[2019-12-30 08:09] LABS: BLOOD UREA NITROGEN 10 MG/DL (7-18); CALCIUM LEVEL 8.9 MG/DL (8.5-10.1); CARBON DIOXIDE LEVEL 40 MEQ/L (21-32); CHLORIDE LEVEL 96 MEQ/L (98-107); CREATININE FOR GFR 0.41 MG/DL (0.70-1.30); GLOMERULAR FILTRATION RATE > 60.0 (>56); GLUCOSE, FASTING 102 MG/DL (70-100); POTASSIUM SERUM 3.6 MEQ/L (3.5-5.1); SODIUM LEVEL 137 MEQ/L (136-145)
--- NOTE | 2019-12-30 10:40 | IPNPDOC ---
Text Note Date of Service The patient was seen on 12/29/19. NOTE SUBJECTIVE: Feeling better again today. No new medical complaints. Anxious to be discharged to see his new grandson. Objective: Vitals: see below General: NAD, lying comfortably in bed, cachectic, appears older than stated age, chronically ill appearing HEENT: NC/AT, EOMI Pulmonary: Diminished breath sounds in all espinoza, no obvious wheezes, rales, rhonchi. Heart: +S1S2, RRR Abdomen: Positive bowel sounds, soft and nontender, no rebound or guarding, no obvious hepatosplenomegaly. Extremities: No cyanosis, clubbing, or edema. Skin: Skin is warm and dry. Neurologic: Nonfocal grossly. ASSESSMENT AND PLAN: 54 yo male with PMHx end stage COPD admitted for acute/chronic hypercarbic respiratory failure #acute/chronic hypercarbic respiratory failure, COPD/emphysema - sating well on supplemental oxygen via nasal cannula - awaiting insurance approval for trilogy bipap for home use - to follow up Tuesday with DME - PT/OT #HTN - 2 gram sodium diet #DVT prophylaxis VS,Fishbone, I+O VS, Fishbone, I+O Laboratory Tests 12/30/19 07:17 Vital Signs Date Time Temp Pulse Resp B/P (MAP) Pulse Ox O2 Delivery O2 Flow Rate FiO2 12/30/19 06:00 97.3 112 18 125/76 (92) 92 Nasal Cannula 2.0 12/27/19 08:00 30 I&O- Last 24 Hours up to 6 AM 12/30/19 06:00 Intake Total 2580 ml Output Total 800 ml Balance 1780 ml OBED QUEZADA MD Dec 30, 2019 10:40
--- NOTE | 2019-12-30 10:42 | IPNPDOC ---
Text Note Date of Service The patient was seen on 12/30/19. NOTE SUBJECTIVE: Feeling better again today. States this is the best he has felt in months. No new medical complaints. Objective: Vitals: see below General: NAD, sitting comfortably at edge of bed, cachectic, appears older than stated age HEENT: NC/AT, EOMI Pulmonary: Diminished breath sounds in all espinoza, no obvious wheezes, rales, rhonchi. Heart: +S1S2, RRR Abdomen: Positive bowel sounds, soft and nontender, no rebound or guarding, no obvious hepatosplenomegaly. Extremities: No cyanosis, clubbing, or edema. Skin: Skin is warm and dry. Neurologic: Nonfocal grossly. ASSESSMENT AND PLAN: 54 yo male with PMHx end stage COPD admitted for acute/chronic hypercarbic respiratory failure #acute/chronic hypercarbic respiratory failure, COPD/emphysema - sating well on 2L supplemental oxygen via nasal cannula - states baseline is 3-4 at rest - awaiting for trilogy bipap for home use - to follow up Tuesday with DME - PT/OT #HTN - 2 gram sodium diet #DVT prophylaxis VS,Fishbone, I+O VS, Fishbone, I+O Laboratory Tests 12/30/19 07:17 Vital Signs Date Time Temp Pulse Resp B/P (MAP) Pulse Ox O2 Delivery O2 Flow Rate FiO2 12/30/19 06:00 97.3 112 18 125/76 (92) 92 Nasal Cannula 2.0 12/27/19 08:00 30 I&O- Last 24 Hours up to 6 AM 12/30/19 06:00 Intake Total 2580 ml Output Total 800 ml Balance 1780 ml OBED QUEZADA MD Dec 30, 2019 10:42
[2019-12-30 14:00] VITALS: BP 130/60
[2019-12-30 22:00] VITALS: BP 142/60
[2019-12-31] MEDS: AZITHROMYCIN INJ 500 MG, VIAL MATE ADAPTER 1 EACH in D5W 250 ML IV SCH (00:38)
[2019-12-31] MEDS: IPRATROPIUM 0.5MG/ALBUTEROL 2.5MG INH SOL UD 3ML (DUONEB) NEB SCH ×3 (03:58→11:17)
[2019-12-31 06:00] VITALS: BP 121/66
[2019-12-31 06:44] LABS: HEMATOCRIT 38.1 % (42.0-52.0); HEMOGLOBIN 11.5 g/dl (13.5-17.5); MEAN CORPUSCULAR HEMOGLOBIN 29.2 pg (27.0-33.0); MEAN CORPUSCULAR HGB CONC 30.2 g/dl (32.0-36.5); MEAN CORPUSCULAR VOLUME 96.7 fl (80.0-96.0); PLATELET COUNT, AUTOMATED 226 10^3/uL (150-450); RED BLOOD COUNT 3.94 10^6/uL (4.30-6.10); WHITE BLOOD COUNT 9.6 10^3/uL (4.0-10.0)
[2019-12-31 07:11] LABS: BLOOD UREA NITROGEN 9 MG/DL (7-18); CALCIUM LEVEL 8.9 MG/DL (8.5-10.1); CARBON DIOXIDE LEVEL 41 MEQ/L (21-32); CHLORIDE LEVEL 99 MEQ/L (98-107); GLOMERULAR FILTRATION RATE > 60.0 (>56); GLUCOSE, FASTING 87 MG/DL (70-100); POTASSIUM SERUM 3.9 MEQ/L (3.5-5.1); SODIUM LEVEL 142 MEQ/L (136-145)
--- NOTE | 2019-12-31 08:13 | IPNPDOC ---
Subjective Date Seen The patient was seen on 12/31/19. Subjective Chief Complaint/HPI Patient was seen at bedside this morning. He's sitting comfortably in bed and satting at 98% on 2L NC. Patient states that he's still feeling fatigued but his overall symptoms are improving from previous days. Overnight, he was anxious and is not complaint with his bipap machine according to nursing. Otherwise, no acute events overnight. He denies CP, SOB, abdominal discomfort, n/v/d. General: Reports: Normal Appetite; Denies: Chills, Night Sweats, Fatigue Constitutional: Reports: Fatigue, Other (cachetic looking); Denies: Chills, Fever, Malaise, Night Sweats, Weakness Eyes: Denies: Vision change ENT: Denies: Head Aches, Ear Pain, Dysphagia, Sinus Congestion Skin: Denies: Rash, Lesions, Jaundice, Bruising Pulmonary: Reports: Cough; Denies: Dyspnea, Pleuritic Chest Pain Cardiovascular: Reports: Orthopnea; Denies: Chest Pain, Palpitations, Paroxysmal Noc. Dyspnea, Edema, Lt Headedness Gastrointestinal: Denies: Nausea, Vomiting, Abdominal Pain, Diarrhea, Constipation Genitourinary: Denies: Dysuria, Incontinence, Hematuria Hematologic: Denies: Petecchia Endocrine: Denies: Polydipsia, Polyphagia, Polyuria Objective Physical Examination General Exam: Positive: Alert, Cooperative, No Acute Distress, Other (cachetic looking man who appears older than stated age) Eye Exam: Positive: PERRLA, Sclera icteric Neck Exam: Positive: Supple, +2 carotid pulse wo bruit; Negative: JVD, thyromegaly, Lymphadenopathy Chest Exam: Positive: Clear to auscultation, Normal air movement; Negative: Rales, Rhonchi, Wheezing, Diminished Heart Exam: Positive: Rate Normal, Regular Rhythm, Normal S1, Normal S2; Negative: Tachycardic, Gallops, Murmurs, Rubs Abdomen Exam: Positive: Normal bowel sounds, Soft; Negative: Tenderness, Hepatospenomegaly, Hernia Extremity Exam: Positive: Normal pulses, Other (significant muscle wasting 2/2 to emphysema ); Negative: Cyanosis, Edema, Tenderness Skin Exam: Negative: Nl turgor and temperature, Rash, Breakdown, Lesion, Pruritus Neuro Exam: Positive: Strength at 5/5 X4 ext, Normal Tone, Sensation Intact Psych Exam: Positive: Mental status NL, Mood NL, Anxiety (mildly anxious ), Other (anxious during the night that causes him to take off his bipap/noncompliant) Assessment /Plan Assessment This is a 54 year old male who is a chronic smoker (>40 pack year hx), and has a known hx of severe and end stage chronic COPD, recurrent hospitalizations for COPD exacerbations and hypercapnia despite no obvious infection, presents to [facility] again for hypercapnic respiratory failure requiring BIPAP. He initially had altered mental status and metabolic encephalopathy from hypercarbia. #Acute hypercarbic respiratory failure #COPD exacerbation #Emphysema #Hx of Tobacco use (40+ pack years) Plan/VTE VTE Prophylaxis Ordered?: Yes Plan Pt is satting 94% on 2L NC Continue duonebs Q4H PRN to titrate O2 sat 88%-92% Continue prednisone 40mg PO qdaily Continue Rocephin and Zithromax (started on 12/25 Day 6 ) Continue PT/OT Pending trilogy bipap for home use Diet: 2g Sodium Diet Fluids: None. Encourage PO intake DVT ppx: Lovenox subQ q24h GI ppx: Protonix 40mg IV qdaily Code Status: Full Code Disposition: Pending trilogy bipap for home use and discharge home. Continue PT/OT VS, I&O, 24H, Fishbone Vital Signs/I&O Vital Signs Date Time Temp Pulse Resp B/P (MAP) Pulse Ox O2 Delivery O2 Flow Rate FiO2 12/31/19 06:00 99.1 99 18 121/66 (84) 98 Nasal Cannula 2.0 12/27/19 08:00 30 I&O- Last 24 Hours up to 6 AM 12/31/19 06:00 Intake Total 3160 ml Output Total 1000 ml Balance 2160 ml Laboratory Data 24H LABS Laboratory Tests 2 12/31/19 06:14: Nucleated Red Blood Cells % (auto) 0.0, Anion Gap 2L, Glomerular Filtration Rate > 60.0, Calcium Level 8.9 CBC/BMP Laboratory Tests 12/31/19 06:14 Microbiology Microbiology 12/26/19 Blood Culture - Final, Complete NO GROWTH AFTER 5 DAYS 12/26/19 Blood Culture - Final, Complete NO GROWTH AFTER 5 DAYS GME ATTESTATION GME ATTESTATION My faculty preceptor for this patient encounter was physically present during the encounter and was fully available. All aspects of the patient interview, examination, medical decision making process, and medical care plan development were reviewed and approved by the faculty preceptor. The faculty preceptor is aware and concurs with the plan as stated in the body of this note and will attest to such by his/her cosignature. GME ATTESTATION GME ATTESTATION My faculty preceptor for this patient encounter was physically present during the encounter and was fully available. All aspects of the patient interview, examination, medical decision making process, and medical care plan development were reviewed and approved by the faculty preceptor. The faculty preceptor is aware and concurs with the plan as stated in the body of this note and will attest to such by his/her cosignature. ATTENDING NOTE Patient seen and examined independently. Agree with resident's note. Judie Song DO Dec 31, 2019 08:13 OBED QUEZADA MD Jan 22, 2020 12:54
[2019-12-31] MEDS: ENOXAPARIN 40MG/0.4ML SYRINGE (J1650 PER 10MG) SC SCH (10:32)
[2019-12-31] MEDS: predniSONE 20 MG TAB PO SCH (10:32)
[2019-12-31] MEDS: PANTOPRAZOLE 40MG VIAL (C9113 PER 1) IV SCH (10:32)
[2019-12-31] MEDS ORDERED: FLUBLOK(EGG FREE)(QUAD)INFLUENZA VACC 0.5ML SYRINGE 18YRS & OLDER IM ONE (12:00)
[2019-12-31] MEDS ORDERED: PRED10TA2 PO (12:43)
[2019-12-31] MEDS ORDERED: AZIT500T5 PO (12:43)
[2019-12-31] MEDS ORDERED: CEFD300CAP PO (12:43)
--- NOTE | 2019-12-31 14:51 | DS.PDOC ---
Discharge Summary General Date of Admission Dec 25, 2019 at 23:16 Date of Discharge 12/31/2019 Attending Physician: OBED QUEZADA MD Specialist/Consultants Involve: CIARA ZUNIGA Discharge Summary PROCEDURES PERFORMED DURING STAY: [None]. ADMITTING DIAGNOSES: 1. Hypercapnic respiratory failure DISCHARGE DIAGNOSES: 1. Hypercapnic respiratory failure end stage COPD and Emphysema COMPLICATIONS/CHIEF COMPLAINT: Acute Hypercarbic, Respiratory Failure. Hospital course: This is a 54 y/o Male with End stage COPD/emphysema on 4L home oxygen reported to [facility] as a transfer from [facility] for AMS found to have acute4 hypercapnic respiratory failure. In the ER he was found to be hypercarpnic with an ABG PH 7.29/128/64 and subsequently put on BIPAP and given IV solumderol, duonebs and IV zosyn. Initially in the ER, patient was altered an d had metabolic encephalopathy from hypercarbia. He was put on zithromax and rocephin for a 7 day course, and duonebs Q4h PRN to titrate his O2 saturation between 88%-92%. This am, patient is on 2L O2 and satting at 94% and is at baseline in terms of oxygen requirments. During this hospitalization, patient was counseled on tobacco cessation; however, at this point, pt has no interest in quitting. Blood cx taken were negative. On discharge, patient was instructed to take trelogy and be compliant w/ bipap as well as a course of zithromax and cefdinir. He was also instructed to take a steroid taper. Patient is to follow up with his pcp within 5 days of hospital discharge and see Dr. Zuniga (Pulm onologist) within 2 weeks of discharge. He was instructed that if his conditions get worse that he needs to go to his nearest ER or come back to [facility] ER. DISCHARGE MEDICATIONS: Please see below. ALLERGIES: Please see below. PHYSICAL EXAMINATION ON DISCHARGE: VITAL SIGNS: Please see below. General Exam: Positive: Alert, Cooperative, No Acute Distress, Other (cachetic looking man who appears older than stated age) Eye Exam: Positive: PERRLA, Sclera icteric Neck Exam: Positive: Supple, +2 carotid pulse wo bruit; Negative: JVD, thyromegaly, Lymphadenopathy Chest Exam: Positive: Clear to auscultation, Normal air movement; Negative: Rales, Rhonchi, Wheezing, Diminished Heart Exam: Positive: Rate Normal, Regular Rhythm, Normal S1, Normal S2; Negative: Tachycardic, Gallops, Murmurs, Rubs Abdomen Exam: Positive: Normal bowel sounds, Soft; Negative: Tenderness, Hepatospenomegaly, Hernia Extremity Exam: Positive: Normal pulses, Other (significant muscle wasting 2/2 to emphysema ); Negative: Cyanosis, Edema, Tenderness Skin Exam: Negative: Nl turgor and temperature, Rash, Breakdown, Lesion, Pruritus Neuro Exam: Positive: Strength at 5/5 X4 ext, Normal Tone, Sensation Intact Psych Exam: Positive: Mental status NL, Mood NL, Anxiety (mildly anxious ), Other (anxious during the night that causes him to take off his bipap/noncompliant) LABORATORY DATA: Please see below. IMAGING: see chart ACTIVITY: [As tolerated]. DIET: [2g Sodium] DISPOSITION: Home, Self-Care. DISCHARGE INSTRUCTIONS: F/u with PCP within 5 days and medical dir within 2 weeks. D/C'd home with cefdinir and zithromax and prednisone taper. take as instructed. DISCHARGE CONDITION: [at baseline status ]. TIME SPENT ON DISCHARGE: Greater than [35] minutes. Vital Signs/I&Os Vital Signs Date Time Temp Pulse Resp B/P (MAP) Pulse Ox O2 Delivery O2 Flow Rate FiO2 12/31/19 06:00 99.1 99 18 121/66 (84) 98 Nasal Cannula 2.0 12/27/19 08:00 30 I&O- Last 24 Hours up to 6 AM 12/31/19 05:59 Intake Total 3160 ml Output Total 1000 ml Balance 2160 ml Laboratory Data Labs 24H Laboratory Tests 2 12/31/19 06:14: Nucleated Red Blood Cells % (auto) 0.0, Anion Gap 2L, Glomerular Filtration Rate > 60.0, Calcium Level 8.9 CBC/BMP Laboratory Tests 12/31/19 06:14 Microbiology Microbiology 12/26/19 Blood Culture - Final, Complete NO GROWTH AFTER 5 DAYS 12/26/19 Blood Culture - Final, Complete NO GROWTH AFTER 5 DAYS Discharge Medications Scheduled Duloxetine HCl (Duloxetine HCl) 60 Mg Capsule.dr, 60 MG PO DAILY, (Reported) Fluticasone/Umeclidin/Vilanter (Trelegy Ellipta 100-62.5-25) 1 Each Blst.w.dev, 1 PUFF INH DAILY, (Reported) Folic Acid (Folic Acid) 1 Mg Tablet, 1 MG PO DAILY, (Reported) Multivitamin (Tab-A-Momo) 1 Each Tablet, 1 TAB PO DAILY, (Reported) Pantoprazole Sodium (Pantoprazole Sodium) 40 Mg Tablet.dr, 40 MG PO DAILY, (Reported) Thiamine Mononitrate (Vit B1) (Vitamin B-1) 100 Mg Tablet, 100 MG PO DAILY, (Reported) Scheduled PRN Albuterol Sulfate (Proair Hfa) 8.5 Gm Hfa.aer.ad, 2 PUFFS PO QID PRN for SHORTNESS OF BREATH, (Reported) Allergies Coded Allergies: No Known Allergies (Unverified , 10/14/19) GME ATTESTATION GME ATTESTATION My faculty preceptor for this patient encounter was physically present during the encounter and was fully available. All aspects of the patient interview, examination, medical decision making process, and medical care plan development were reviewed and approved by the faculty preceptor. The faculty preceptor is aware and concurs with the plan as stated in the body of this note and will attest to such by his/her cosignature. ATTENDING NOTE Patient seen and examined independently. Agree with resident's note. Judie Song DO Dec 31, 2019 14:51 OBED QUEZADA MD Jan 22, 2020 12:54
--- NOTE | 2020-01-01 07:57 | CCN ---
DATE: 12/27/2019 SUBJECTIVE: The patient is seen in the ICU. He has been on Bi-PAP, which he has been tolerating. He does report that he feels his breathing is better. Trials off of Bi-PAP on 4 liters of oxygen have shown that he is able to maintain his sats in the low to mid 90s. He denies fevers or chills. He is anxious to get home. PHYSICAL EXAMINATION: Vitals: Temperature 98.6, pulse 85, respiratory rate 19, blood pressure 144/86, pulse ox 100% on Bi-PAP. Recent oxygen saturation on 4 liters was 94. General: Patient is alert and oriented. Mood and affect appropriate. He is somewhat anxious. HEENT: Head is normocephalic/atraumatic. Moist mucous membranes. Tongue is midline. Pupils are equal and reactive to light. Neck: Neck is supple. No cervical lymphadenopathy. No JVD. Trachea is midline. Pulmonary: Diminished breath sounds in all espinoza but no wheezes, rales, or rhonchi. Some accessory muscle use. Heart: Regular rate and rhythm. No murmurs. Abdomen: Positive bowel sounds. Soft, nontender. No rebound or guarding. Extremities: No clubbing, cyanosis, or edema. Skin: Skin is warm and dry. Neuro: Nonfocal grossly. LABORATORY DATA: WBC 7.0, hemoglobin 11.1, hematocrit 35.4, platelets 194. Sodium 135, potassium 3.3, chloride 86, CO2 44, BUN 14, creatinine 0.49, glucose 97, calcium 9.7, total bilirubin 0.2, AST 16, ALT 19, alkaline phosphatase 65, total protein 7.0, albumin 3.5. ABG: pH 7.42, pCO2 72.5, pO2 104.2. ASSESSMENT/PLAN: 1. Acute hypercarbic respiratory failure. Patient is showing some improvement on Bi-PAP. He is able to tolerate time off Bi-PAP, and, therefore, we will switch him to just Bi-PAP for all forms of sleep. He will continue with supplemental oxygen while awake. He does have end-stage pulmonary disease and underlying COPD. Dr. Zuniga has been working towards getting him a Trilogy unit at home. He is on IV azithromycin and ceftriaxone to cover for any possible respiratory infectious processes. He is currently getting Solu-Medrol 60 mg IV q.12. We will discontinue this and change him over to oral prednisone. Overall, the patient has a poor prognosis, and Dr. Zuniga feels that his life expectancy is less than a year. We will transfer him over to the hospitalist service but will be available if needed. 2. Hypokalemia. Patients potassium today was 3.3. We will give him oral KCl replacement. Continue to monitor. MTDD
--- NOTE | 2020-01-01 08:07 | IPN ---
DATE: 12/28/2019 This note is on behalf of Dr. Edith Wilkins. SUBJECTIVE: Mr. Deras was seen and examined at the bedside this morning. He reports that his breathing has improved since admission. His mental status is also improved as well. He reports that he is not having any issues using the BiPAP at night. When asked about whether he has required his Trilogy Machine for his BiPAP at home, he states he has not yet acquired it. We had a discussion regarding the use of nebulizers and the BiPAP at home and how that is necessary after discharge. In addition, we did have a discussion regarding code status. The patient did seem somewhat confused at first, but mentioned to us that he felt that he would be a DNR and DNI. He understood the risks of intubation and the possibility of not being able to be extubated, etc. Otherwise, he had no issues overnight and he denied any chest pain, or shortness of breath. He does report he is coughing very minimally in the morning and producing frothy sputum. Denies any nausea, vomiting or diarrhea at this time. PHYSICAL EXAMINATION: VITAL SIGNS: Temperature 99.0, pulse 98 and regular, respiratory rate is 20, blood pressure is 135/82, pulse oximetry is 100% on 2 liters of nasal cannula. GENERAL: He is laying in bed, calm, cooperative, in no acute distress. HEENT: His extraocular movements are intact. His pupils are equally round and reactive to light. His mucous membranes are moist. He is normocephalic, atraumatic. NECK: Supple with no thyromegaly. No lymphadenopathy. CHEST: He does have decreased breath sounds bilaterally. He has a symmetric chest rise. No adventitious breath sounds are appreciated. No wheezing. No rhonchi. No rales. CARDIOVASCULAR: He is regular rate and rhythm with no murmurs, rubs or gallops appreciated. ABDOMEN: Soft and nontender to palpation. Normal bowel sounds. No masses or organomegaly. EXTREMITIES: No cyanosis, clubbing or edema. SKIN: Warm and well-perfused with no new rashes. PSYCH: He has a normal mood and normal affect. NEUROLOGIC: He has no obvious focal deficits. LABORATORY DATA: White blood cell count is 7.0, hemoglobin is 11.6, hematocrit is 37.6 and a platelet count of 194,000. On chemistries he has a sodium of 134, potassium 3.8, his chloride is 93, carbon dioxide is 44, BUN 14 and creatinine is 0.33. His fasting glucose is 81. His total bilirubin was 0.4. AST is 16, ALT is 17, alkaline phosphatase is 56. Total protein 6.3. No other labs were done. Blood cultures showed no growth after 48 hours. No recent imaging was done. ASSESSMENT: This is a 54-year-old male with endstage COPD on 2 liters home oxygen who presented with acute on chronic hypercarbic respiratory failure, in the setting of COPD exacerbation, now improved with the use of bilevel positive airway pressure. PLAN: Today, we have adjusted his BiPAP settings to 18/12. I have called [facility] to inquire about his Trilogy Machine and they reported they are planning to deliver it on the day of discharge. Therefore, the patient will most likely be stable for discharge on Tuesday. [facility] should be called and asked to deliver the device before he arrives home. He is to use his home NIPPV at night and with naps or as needed for respiratory distress. He is to continue his prednisone taper and antibiotics until completion. Otherwise, we will make no other changes to his medications. In regard to his code status, it is important to have him fill out a MOLST form at this time to be sure that he clearly understands the risks if he were to go into cardiac arrest, the risks of chest compressions and being on a ventilator. At this time, he is at his baseline oxygen requirement and mental status, and he is stable for discharge so we will therefore be signing off. Should there be any other questions, we would be happy to answer any questions at this time. IEdith, conducted independent examination and history of the patient and agree with the plan as detailed above by the resident and discussed during rounds. JENI
--- NOTE | 2020-01-11 09:56 | REP ---
PORTABLE CHEST X-RAY: 12/26/19 CLINICAL: COPD exacerbation. COMPARISON: 10/14/19. FINDINGS: Advance chronic COPD and emphysematous changes are appreciated. No obvious acute consolidation, effusion, or pneumothorax. Cardiac silhouette is normal. Skeletal structures are intact. IMPRESSION: 1. Chronic advanced COPD/emphysematous changes. 2. No focal consolidation. MTDD
== END 2019-12-31 14:36 | disposition home or self-care (01) | DRG 133 ==
LOC: M ICU 23:16 → M MSPAV 12-28 14:19
PROVIDERS: ADMIT Internal Medicine Pulmonary Disease; ATTEND Internal Medicine
DX: J96.22 Acute and chronic respiratory failure with hypercapnia (principal); G93.41 Metabolic encephalopathy; Z99.81 Dependence on supplemental oxygen; J44.1 Chronic obstructive pulmonary disease with (acute) exacerbation; F17.200 Nicotine dependence, unspecified, uncomplicated; I10 Essential (primary) hypertension; Z79.899 Other long term (current) drug therapy; R63.4 Abnormal weight loss; E87.6 Hypokalemia

== ENCOUNTER 2020-01-19 12:27 | Inpatient (IN) | payer BC ==
[~2020-01-19] VITALS: Ht 167.6 cm; Wt 46.0 kg
[~2020-01-19 12:27] MED LIST changes: +AZIT500T5 PO; +FOLI1TAB11 PO; +TAB-TAB2 PO; +VITA100T28 PO
[2020-01-19] MEDS ORDERED: HYOSCYAMINE SULFATE 0.125 MG SUBL TABLET PO PRN (12:45)
[2020-01-19] MEDS ORDERED: ONDANSETRON 4MG/2ML VIAL IV PRN (12:45)
[2020-01-19] MEDS ORDERED: FLEET ENEMA PR PRN (12:45)
[2020-01-19] MEDS ORDERED: BISACODYL 10 MG SUPP PR PRN (12:45)
[2020-01-19] MEDS ORDERED: ACETAMINOPHEN TAB 650MG DOSE (2X325MG) PO PRN (12:45)
[2020-01-19] MEDS ORDERED: LORazepam 1 MG TAB PO PRN (12:45)
[2020-01-19] MEDS ORDERED: SCOPOLAMINE 1MG TRANSDERMAL PATCH TOP PRN (12:45)
[2020-01-19 14:30] VITALS: BP 128/87
[2020-01-19] MEDS ORDERED: MORPHINE SULF IN 0.9% NACL 100 MG in IV 1 EA IV SCH ×2 (14:30)
[2020-01-19] MEDS ORDERED: MIDAZOLAM INJ 2MG/2ML VIAL (J2250 PER 1MG) IV STA (14:32)
[2020-01-19] MEDS ORDERED: MORPHINE 4 MG/ML 1ML VIAL/SYRINGE (J2270) IV ONE (15:00)
--- NOTE | 2020-01-19 15:18 | IPNPDOC ---
Date Seen The patient was seen on 01/19/20. Progress Note SUBJECTIVE: Patient is a 54 YO M active smoker with end-stage COPD on 5L home O2 who presents as transfer from [place] for terminal extubation and comfort measures only care with hospice consult. The patient arrived sedated and intubated. OBJECTIVE PHYSICAL EXAMINATION: VITAL SIGNS: Please see below. GENERAL: Intubated, sedated, not following commands HEENT: Pupils are equally round and reactive to light, sclerae are nonicteric, normocephalic/atraumatic CARDIOVASCULAR: difficult to auscultate due to ventilated breath sounds and barrel chest, appears regular rate and rhythm with no obvious or discernible RESPIRATORY: ventilated breath sounds are heard but are very difficult to auscultate due to barrel chest ABDOMINAL: distended, +BS, no obvious organomegaly, no masses EXTREMITIES: no clubbing/cyanosis/edema noted NEUROLOGICAL: unable to perform full neurologic exam as patient is sedated, babinski reflex downgoing, reflexes are intact PSYCHOLOGICAL: unable to examine LABORATORY DATA, IMAGING STUDIES, MICROBIOLOGY: Please see below. DVT prophylaxis ordered?: none ASSESSMENT AND PLAN: This is a 54 YO M current active smoker with end-stage COPD on 5L home O2 who presented as transfer from [facility] for terminal extubation and comfort measures only with hospice consult. PROBLEMS: 1. 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 All aspects of the patient interview, examination, medical decision making process, and medical care plan development were reviewed and approved by the faculty preceptor. The faculty preceptor is aware and concurs with the plan as stated in the body of this note and will attest to such by his/her cosignature. ATTENDING NOTE I, Savanna Ham, have independently examined this patient and performed my own physical exam, as well as reviewed the documentation and edited where necessary. I have discussed in detail with the resident / student the findings and plan of treatment as documented by the resident / student and edited their note. I agree with their findings and treatment plan and have edited their documentation. I will continue to follow the patient during this hospital stay. SHELLY VÁSQUEZ MD Jan 19, 2020 15:18 SAVANNA HAM MD Jan 19, 2020 15:49
[2020-01-19] MEDS ORDERED: MORPHINE 2 MG/ML 1ML VIAL (J2270) IV PRN (16:00)
--- NOTE | 2020-01-20 12:48 | HPE ---
CRITICAL CARE NOTE DATE OF ADMISSION: 01/19/2020 CRITICAL CARE TIME: Approximately 30 minutes. This excludes all procedures. HISTORY OF PRESENT ILLNESS: Alex Deras is a very pleasant 54-year-old male, well known to my service for end-stage chronic obstructive pulmonary disease (COPD). He has had recurrent recent hospitalizations for hypercarbic failure without precipitating cause other than his advanced lung disease. He was in my office just over 7 days ago. At that point in time, he states he did not want to go to the hospital. He did not want any interventions. He did not want cardiopulmonary resuscitation (CPR). He did not want to be intubated. He signed a Medical Orders for Life-Sustaining Treatment (MOLST) form, and I placed an outpatient DO NOT RESUSCITATE. I have also referred him to hospice. Apparently hospice did not get in touch with him. He has had episodes of worsening hypoxia, worsening hypercarbia, altered mental status. He clearly had CO2 narcosis to varying degrees over the past week. His mother has been trying to help. The patient had continued to smoke despite attempts toward smoking cessation over the past years. At one point in time, I was able to get him to quit smoking for a short period of time and referred him for lung transplantation; however, he continued smoking. He has irreversible lung disease. The emergency room physician also noted EKG abnormalities and suggested that they consider going to [facility]. The family stated that they wanted to be transferred to [facility], and they were likely converting to palliative care. I discussed his case with his mother, who is in attendance here in the hospital and was at our last office visit, who overheard him state that he does not want anything done. She is in agreement, and I talked to Winston, his son, who is a healthcare proxy. He is also in agreement to extubation and palliative care. Therefore, the plan for this patient is palliative care. Patient was given Solu-Medrol and DuoNebs in the emergency room. PAST MEDICAL HISTORY: 1. End-stage lung disease. 2. Emphysema with chronic hypoxic respiratory failure and hypertension. 3. Depression. 4. Pulmonary cachexia. HOME MEDICATIONS: Inhaled therapy with albuterol, Trilogy, folic acid, multivitamin, pantoprazole, thiamine, and duloxetine. ALLERGIES: No known drug allergies (NKDA). SOCIAL HISTORY: Heavy history of smoking. No alcohol use or illicit drug use. FAMILY HISTORY: Unable to obtain at this point in time and very irrelevant. REVIEW OF SYSTEMS: Unobtainable. PHYSICAL EXAMINATION: GENERAL: Patient is sedated on mechanical ventilation. Does have spontaneous breathing and is moving extremities occasionally. Opens eyes occasionally. Not responding to command. HEENT: Sclerae clear, anicteric. Pupils equal and reactive to light. Mucous membranes moist without lesions. Tongue is midline. Neck is supple. No tracheal deviation or mass. LYMPH NODES: No cervical, supraclavicular, or axillary adenopathy. CARDIAC: Tachycardic, S1, S2 without audible murmur, rub, or gallop. No elevated jugular venous pressure (JVP). No peripheral edema. PULMONARY: Decreased breath sounds throughout all lung espinoza. No rales, rhonchi, or wheezes. No dullness to percussion. No accessory muscle use. ABDOMEN: Scaphoid, soft, nontender, nondistended. No hepatosplenomegaly. No masses or hernia. EXTREMITIES: Very little muscle tone. No cyanosis, clubbing, or edema. MUSCULOSKELETAL: Significant muscle wasting. PULMONARY: Cachexia. No obvious fractures or joint effusion. NEUROLOGIC: No unilateral weakness. No myoclonus. Not responding to command at this point in time. Temperature is 101.3, heart rate 95, oxygen 98% on 0.20 FiO2 when he was on mechanical ventilation, pressure control 28/6 with a rate of 15. Blood pressure 128/87. EKG from January 18 at 9:52 shows right atrial enlargement and an incomplete bundle branch block, similar changes except for on the second EKG at 10:52. There was a third EKG at 12:11, which started to show ST elevation in the inferior leads. Original blood gas shows a pH 7.2, pCO2 of 128, pO2 of 156. White blood cell count is normal at 9.0, hemoglobin at 12.8, platelet count of 185 from the outside hospital. DIAGNOSTIC STUDIES: I have no imaging available to read at this point in time but reportedly was unremarkable from the outside institution. IMPRESSION: A 54-year-old male found unresponsive, hypercarbic with history of end-stage lung disease. previously expressed wishes to myself that he does not want any further resuscitation. He has this documented in a MOLST form. His mother and son have confirmed this; therefore, plan is for palliative extubation. Therefore, no further diagnostic testing will be obtained. I will initiate morphine for control of air hunger and pain. Benzodiazepine therapy for anxiety, and hyoscyamine for excessive secretions. After he is extubated, his regimen will be initiated. All drips will be held prior to extubation. He will then be converted over to the hospitalist service for palliative care. JENI
--- NOTE | 2020-01-21 16:41 | DS.PDOC ---
Discharge Summary General Date of Admission Jan 19, 2020 at 14:22 Date of Discharge 01/19/2020 Attending Physician: SAVANNA POND MD Specialist/Consultants Involve: ICARA FRANCISCO Discharge Summary PROCEDURES PERFORMED DURING STAY: [None]. ADMITTING DIAGNOSES / DISCHARGE DIAGNOSES: Acute hypoxic and hypercapnic respiratory failure End Stage COPD Metabolic encephalopathy in setting of CO2 narcosis, found unresponsive COMPLICATIONS/CHIEF COMPLAINT: Respiratory Failure. HISTORY OF PRESENT ILLNESS / HOSPITAL COURSE: "Alex Deras is a very pleasant 54-year-old male, well known to my service for end-stage chronic obstructive pulmonary disease (COPD). He has had recurrent recent hospitalizations for hypercarbic failure without precipitating cause other than his advanced lung disease. He was in my office just over 7 days ago. At that point in time, he states he did not want togo to the hospital. He did not want any interventions. He did not want cardiopulmonary resuscitation (CPR). He did not want to be intubated. He signed a Medical Orders for Life-Sustaining Treatment (MOLST) form, and I placed an outpatient DO NOT RESUSCITATE. I have also referred him to hospice. Apparently hospice did not get in touch with him. He has had episodes of worsening hypoxia,worsening hypercarbia, altered mental status. He clearly had CO2 narcosis to varying degrees over the past week. His mother has been trying to help. The patient had continued to smoke despite attempts toward smoking cessation over the past years. At one point in time, I was able to get him to quit smoking for a short period of time and referred him for lung transplantation; however, he continued smoking. He has irreversible lung disease. The emergency room physician also noted [facility]KG [facility] that [facility] to be transferred to [facility], and they were likely converting to palliative care. I discussed his case with his mother, who is in attendance here in the hospital and was at our last office visit, who overheard him state that he does not want anything done. She is in agreement, and I talked to Winston, his son, who is a healthcare proxy. He is also in agreement to extubation and palliative care. Therefore, theplan for this patient is palliative care. Patient was given Solu-Medrol and DuoNebs in the emergency room." HPI per Dr. Francisco The patient arrive to [facility] intubated and sedated. Family was present at the bedside. He was given one dose of Versed and was extubated. Approximately 2 hours later the patient was . DISCHARGE MEDICATIONS: Please see below. ALLERGIES: Please see below. PHYSICAL EXAMINATION ON DISCHARGE: Full exam not complete DISPOSITION: Vital Signs/I&Os Vital Signs Date Time Temp Pulse Resp B/P (MAP) Pulse Ox O2 Delivery O2 Flow Rate FiO2 01/19/20 14:55 25 01/19/20 14:30 101.3 117 28 128/87 (101) 100 Ventilator Discharge Medications Scheduled Duloxetine HCl (Duloxetine HCl) 60 Mg Capsule.dr, 60 MG PO DAILY, (Reported) Fluticasone/Umeclidin/Vilanter (Trelegy Ellipta 100-62.5-25) 1 Each Blst.w.dev, 1 PUFF INH DAILY, (Reported) Folic Acid (Folic Acid) 1 Mg Tablet, 1 MG PO DAILY, (Reported) Multivitamin (Tab-A-Momo) 1 Each Tablet, 1 TAB PO DAILY, (Reported) Pantoprazole Sodium (Pantoprazole Sodium) 40 Mg Tablet.dr, 40 MG PO DAILY, (Reported) Thiamine Mononitrate (Vit B1) (Vitamin B-1) 100 Mg Tablet, 100 MG PO DAILY, (Reported) Scheduled PRN Albuterol Sulfate (Proair Hfa) 8.5 Gm Hfa.aer.ad, 2 PUFFS PO QID PRN for SHORTNESS OF BREATH, (Reported) Allergies Coded Allergies: No Known Allergies (Unverified , 10/14/19) GME ATTESTATION GME ATTESTATION My faculty preceptor for this patient encounter was physically present during the encounter and was fully available. All aspects of the patient interview, examination, medical decision making process, and medical care plan development were reviewed and approved by the faculty preceptor. The faculty preceptor is aware and concurs with the plan as stated in the body of this note and will attest to such by his/her cosignature. ATTENDING NOTE I, Savanna Pond, have independently examined this patient and performed my own physical exam, as well as reviewed the documentation and edited where necessary. I have discussed in detail with the resident / student the findings and plan of treatment as documented by the resident / student and edited their note. I agree with their findings and treatment plan and have edited their documentation. I will continue to follow the patient during this hospital stay. SAVANNA POND MD Jan 19, 2020 17:01 SHELLY VÁSQUEZ MD Jan 21, 2020 16:41
== END 2020-01-19 16:15 | disposition expired | DRG 862 ==
LOC: M ICU 14:22
PROVIDERS: ADMIT Internal Medicine Pulmonary Disease; ATTEND Internal Medicine
PROC: 5A1935Z Respiratory Ventilation, Less than 24 Consecutive Hours (ICD-10-PCS; principal; 2020-01-19)
DX: Z51.5 Encounter for palliative care (principal); J96.02 Acute respiratory failure with hypercapnia; G93.41 Metabolic encephalopathy; R64 Cachexia; J96.21 Acute and chronic respiratory failure with hypoxia; Z99.81 Dependence on supplemental oxygen; J44.9 Chronic obstructive pulmonary disease, unspecified; Z66 Do not resuscitate; I10 Essential (primary) hypertension; F32.9 Major depressive disorder, single episode, unspecified; Z79.899 Other long term (current) drug therapy; F17.200 Nicotine dependence, unspecified, uncomplicated